=== PATIENT | female | born 1990 | race Caucasian/White ===

== ENCOUNTER 2017-12-20 23:41 | Emergency (ER) | payer OTHER ==
[2017-12-21 00:20] LABS: Urine Blood NEGATIVE (NEG); Urine Glucose NEGATIVE (NEG); Urine Protein NEGATIVE (NEG); Urine Specific Gravity 1.015 (1.005-1.030); Urine pH 7.5 (5.0-7.0)
--- NOTE | 2017-12-21 00:34 | ER ---
Nurse's Notes [facility] Name: Matt Restrepo Age: 27 yrs Sex: Female : 1990 Arrival Date: 12/20/2017 Time: 23:41 Bed 14 Private MD: Diagnosis: discomfort of Presentation: 12/20 23:55 Presenting complaint: Patient states: she started feeling an intermittent abdominal bb pain in the front of her stomach pt is 16 weeks denies vaginal bleeding. Transition of care: patient was not received from another setting of care. Onset of symptoms was December 20, 2017. Risk Assessment: Do you want to hurt yourself or someone else? Patient reports no desire to harm self or others. Initial Sepsis Screen: Does the patient meet any 2 criteria? No. Patient's initial sepsis screen is negative. Does the patient have a suspected source of infection? No. Patient's initial sepsis screen is negative. Care prior to arrival: None. 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 - Social history:: Smoking status: Patient uses tobacco products, several cigarettes daily. - Ebola Screening: : No symptoms or risks identified at this time. Screenin/01 00:36 Abuse screen: Denies threats or abuse. Denies injuries from another. Nutritional ao screening: No deficits noted. Tuberculosis screening: No symptoms or risk factors identified. Fall Risk None identified. Assessment: 12/20 23:56 General: Appears in no apparent distress. comfortable, Behavior is calm, cooperative, ao appropriate for age. Pain: Complains of pain in abdomen. Neuro: Level of Consciousness is awake, alert, obeys commands, Oriented to person, place, time, situation, Appropriate for age Moves all extremities. Full function Speech is normal, Facial symmetry appears normal. Cardiovascular: Capillary refill < 3 seconds Patient's skin is warm and dry. Cardiovascular: Denies chest pain, shortness of breath. Respiratory: Airway is patent Respiratory effort is even, unlabored, Respiratory pattern is regular, symmetrical. GI: Bowel sounds present X 4 quads. Abd is soft and non tender. GI: Reports upper abdominal pain, nausea. : No signs and/or symptoms were reported regarding the genitourinary system. EENT: No signs and/or symptoms were reported regarding the EENT system. Derm: Skin is intact, Skin is pink, warm \T\ dry. normal. Musculoskeletal: Circulation, motion, and sensation intact. Range of motion:. 12/21 00:43 Reassessment: DC instructions given to patient. Patient agree with the POC and to ao follow up with OBG doctor. Instructed patient about [place] contractions during and to take Tylenol or prescribed medications by primary or OBG doctor at home during . Vital Signs: 12/20 23:57 BP 116 / 78; Pulse 83; Resp 16 S; Temp 97.3(A); Pulse Ox 100% on R/A; Weight 92.99 kg bb (R); Height 5 ft. 3 in. (160.02 cm) (R); Pain 0/10; 23:57 Body Mass Index 36.31 (92.99 kg, 160.02 cm) bb 23:57 at worst pain is 7/10 bb ED Course: 23:41 Patient arrived in ED. ds1 23:47 Harjinder Coon MD is Attending Physician. gs 23:56 Triage completed. bb 23:56 Dano Wagner RN is Primary Nurse. ao 23:57 Arm band placed on Patient placed in an exam room, on a stretcher, on pulse oximetry. bb 12/21 00:36 Patient has correct armband on for positive identification. Pulse ox on. NIBP on. ao 00:42 No provider procedures requiring assistance completed. Patient did not have IV access ao during this emergency room visit. Administered Medications: No medications were administered Outcome: 00:34 Discharge ordered by . gs 00:42 Discharged to home ambulatory. ao 00:42 Condition: stable 00:42 Discharge instructions given to patient, Instructed on discharge instructions, Demonstrated understanding of instructions, follow-up care, medications. 00:46 Patient left the ED. ao Signatures: Casie Shaw ds1 Gonzalez, Samantha, RN RN bb Wagner, Dano, RN RN ao Coon, Harjinder, MD MD gs
--- NOTE | 2017-12-21 00:34 | EDPHYS ---
Physician Documentation [facility] Name: Matt Restrepo Age: 27 yrs Sex: Female : 1990 Arrival Date: 12/20/2017 Time: 23:41 Bed 14 Private MD: ED Physician Harjinder Coon HPI: 12/21 00:28 This 27 yrs old Female presents to ER via Ambulatory with complaints of gs Abdominal Pain - 16 Wks Preg. 00:28 The patient presents with abdominal pain in the left lower quadrant. Onset: The gs symptoms/episode began/occurred this morning. The symptoms do not radiate. Associated signs and symptoms: Pertinent negatives: nausea, vomiting, and diarrhea. The symptoms are described as crampy, intermittent. Modifying factors: The symptoms are alleviated by nothing, the symptoms are aggravated by nothing. Severity of pain: At its worst the pain was moderate in the emergency department the pain has resolved. The patient has experienced similar episodes in the past, a few times. 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 - Social history:: Smoking status: Patient uses tobacco products, several cigarettes daily. - Ebola Screening: : No symptoms or risks identified at this time. ROS: 12/21 00:28 All other systems are negative. gs 00:34 : Negative for vaginal bleeding. gs Exam: 00:28 Head/Face: Normocephalic, atraumatic. Eyes: Pupils equal round and reactive to light, gs extra-ocular motions intact. Lids and lashes normal. Conjunctiva and sclera are non-icteric and not injected. Cornea within normal limits. Periorbital areas with no swelling, redness, or edema. ENT: Nares patent. No nasal discharge, no septal abnormalities noted. Tympanic membranes are normal and external auditory canals are clear. Oropharynx with no redness, swelling, or masses, exudates, or evidence of obstruction, uvula midline. Mucous membranes moist. Neck: Trachea midline, no thyromegaly or masses palpated, and no cervical lymphadenopathy. Supple, full range of motion without nuchal rigidity, or vertebral point tenderness. No Meningismus. Chest/axilla: Normal chest wall appearance and motion. Nontender with no deformity. No lesions are appreciated. Cardiovascular: Regular rate and rhythm with a normal S1 and S2. No gallops, murmurs, or rubs. Normal PMI, no JVD. No pulse deficits. Respiratory: Lungs have equal breath sounds bilaterally, clear to auscultation and percussion. No rales, rhonchi or wheezes noted. No increased work of breathing, no retractions or nasal flaring. Back: No spinal tenderness. No costovertebral tenderness. Full range of motion. Skin: Warm, dry with normal turgor. Normal color with no rashes, no lesions, and no evidence of cellulitis. MS/ Extremity: Pulses equal, no cyanosis. Neurovascular intact. Full, normal range of motion. Neuro: Awake and alert, GCS 15, oriented to person, place, time, and situation. Cranial nerves II-XII grossly intact. Motor strength 5/5 in all extremities. Sensory grossly intact. Cerebellar exam normal. Normal gait. 00:28 Constitutional: The patient appears alert, awake. 00:28 Abdomen/GI: Palpation: mild abdominal tenderness, in the left lower quadrant. Vital Signs: 12/20 23:57 BP 116 / 78; Pulse 83; Resp 16 S; Temp 97.3(A); Pulse Ox 100% on R/A; Weight 92.99 kg bb (R); Height 5 ft. 3 in. (160.02 cm) (R); Pain 0/10; 23:57 Body Mass Index 36.31 (92.99 kg, 160.02 cm) bb 23:57 at worst pain is 7/10 bb MDM: 23:52 Patient medically screened. 12/21 00:28 Differential diagnosis: non-specific abd pain, urinary tract infection, raymond garcia. Data reviewed: vital signs, nurses notes. 12/20 23:54 Order name: Urine Microscopic Only 12/20 23:55 Order name: Urine Microscopic Only EDOH 12/20 23:54 Order name: Urine Dipstick-Ancillary (obtain specimen); Complete Time: 00:18 12/21 00:13 Order name: Urine Dipstick--Ancillary (enter results) rg2 12/21 00:13 Order name: Urine --Ancillary (enter results) rg2 Administered Medications: No medications were administered Disposition: 12/21/17 00:34 Discharged to Home. Impression: discomfort of . - Condition is Stable. - Discharge Instructions: [place] Contractions, Abdominal Pain During , [id number]. - Medication Reconciliation Form, Thank You Letter, Antibiotic Education, Prescription Opioid Use form. - Follow up: Private Physician; When: 2 - 3 days; Reason: Re-evaluation by your physician. Signatures: Dispatcher [employer] EDSamantha Canada RN RN Dano Villalobos RN RN ao Starr, Gregory, MD MD gs Corrections: (The following items were deleted from the chart) 00:46 00:34 12/21/2017 00:34 Discharged to Home. Impression: discomfort of . ao Condition is Stable. Forms are Medication Reconciliation Form, Thank You Letter, Antibiotic Education, Prescription Opioid Use. Follow up: Private Physician; When: 2 - 3 days; Reason: Re-evaluation by your physician. gs
[2017-12-21 00:46] LABS: Urine Amorphous Sediment 2+ /HPF (NONE SEEN); Urine Bacteria <20 /HPF (<20); Urine Culture Reflex Order NOT NEEDED; Urine RBC NONE SEEN /HPF (NONE SEEN)
== END 2017-12-21 00:46 | disposition home or self-care (01) ==
LOC: ER 23:41
DX: O26.892 Other specified pregnancy related conditions, second trimester (principal); R10.32 Left lower quadrant pain; F17.200 Nicotine dependence, unspecified, uncomplicated; Z3A.16 16 weeks gestation of pregnancy
CPT/HCPCS: 81003; 81015; 81025; 99283

== ENCOUNTER 2018-05-21 17:38 | Inpatient (IN) | payer OTHER ==
[2018-05-21 20:03] LABS: Absolute Lymphocytes (CBC) 0.5 K/uL (0.7-4.9); Absolute Monocytes 1.2 K/uL (0.1-1.3); Absolute Neutrophil 12.8 K/uL (1.8-8.0); Basophils % 0.1 % (0-1.3); Eosinophils % 0.3 % (0-4.4); Lymphocytes % 3.8 % (15.3-44.8); MPV 8.8 fL (7.6-11.3); Monocytes % 8.1 % (3.3-12.3); RBC Red Blood Cell Count 4.57 M/uL (3.86-4.86)
[2018-05-21 20:14] LABS: Urine Appearance CLOUDY; Urine Bilirubin NEGATIVE (NEG); Urine Blood 2+ (NEG); Urine Color YELLOW; Urine Glucose NEGATIVE (NEG); Urine Protein TRACE (NEG); Urine Specific Gravity 1.025 (1.005-1.030); Urine Urobilinogen 0.2 mg/dL (0.2-1.0)
[2018-05-21 20:31] LABS: Urine Bacteria 20-50 /HPF (<20); Urine Culture Reflex Order REFLEXED; Urine RBC 20-50 /HPF (NONE SEEN)
[2018-05-21 20:32] LABS: Urine Mucus 2+ /HPF (NONE SEEN)
[2018-05-21 20:36] LABS: Barbiturates NEGATIVE (NEGATIVE); Benzodiazepines NEGATIVE (NEGATIVE); Cocaine NEGATIVE (NEGATIVE); METHAMPHETAM NEGATIVE (NEGATIVE); Methadone NEGATIVE (NEGATIVE); Opiates NEGATIVE (NEGATIVE); Phencyclidine NEGATIVE (NEGATIVE); THC Cannibis NEGATIVE (NEGATIVE)
[2018-05-21] MEDS ORDERED: ACETAMINOPHEN 500 MG TAB PO PRN (20:40)
[2018-05-21] MEDS ORDERED: Oxycodone HCl/Acetaminophen 1 TAB TAB PO PRN (20:40)
[2018-05-21 20:45] LABS: Blood Morphology Comment NOT SEEN (NOT SEEN); Platelet Estimate ADEQ; Urine White Blood Cell Casts OK
[2018-05-21] MEDS ORDERED: D5LR 1,000 ML IV SCH (21:00)
[2018-05-21] MEDS ORDERED: Ringers Lactate 1,000 ML IV SCH (21:00)
[2018-05-21 21:19] LABS: Potassium 3.9 mmol/L (3.5-5.1)
[2018-05-21] MEDS: OSELTAMIVIR 75 MG CAP PO SCH (21:45)
[2018-05-21] MEDS ORDERED: OSELTAMIVIR 75 MG CAP ONE (21:46)
[2018-05-21] MEDS: guaiFENesin 100 MG/5 ML UCUP PO PRN (23:25)
[2018-05-22 01:51] VITALS: BMI 39.4
[2018-05-22] MEDS ORDERED: LIDOCAINE 1% MPF 30 ML VIAL ONE (07:50)
[2018-05-22] MEDS ORDERED: OXYTOCIN/LR 20 UNIT/1,000 ML BAG IV ONE (07:51)
[2018-05-22] MEDS ORDERED: Oxycodone HCl/Acetaminophen 1 TAB TAB PO PRN ×2 (08:12)
[2018-05-22] MEDS ORDERED: BISACODYL 10 MG RECTAL SUPP RECT PRN (08:12)
[2018-05-22] MEDS ORDERED: DIPHENHYDRAMINE 25 MG TAB/CAP PO PRN (08:12)
[2018-05-22] MEDS ORDERED: ACETAMINOPHEN 500 MG TAB PO PRN (08:12)
[2018-05-22] MEDS ORDERED: DOCUSATE NA/SENNA CONC 1 TAB PO PRN (08:12)
[2018-05-22] MEDS ORDERED: OXYTOCIN/LR 20 UNIT/1,000 ML BAG IV SCH (09:00)
--- NOTE | 2018-05-22 09:20 | PREOPHP ---
Date of Admission: 05/21/2018 A 27-year-old 4, para 3, at 38 weeks 2 days, came in with chief complaint of coughing, fever, chills, muscle aches. Evaluation showed a white count of over 14,000, positive for influenza A. El ectrolytes were normal. Tachycardia on the baby, was remedios every 3 minutes, noted to be 3 cm, which is basically the same as in the office. The patient was dehydrated, so she was admitted for ob servation and hydration, started on Tamiflu and rehydrated. Admission Diagnoses: Advanced at 38 weeks 2 days, upper respiratory infection - influenza A, and dehydration. RADHA/SABRA Voice ID: [id number]
--- NOTE | 2018-05-22 09:35 | DN ---
Surgeon: Jason Islas MD A 27-year-old 4, para 3, 38 weeks and 2 days on admission with dehydration and a flu as well as regular contractions, but no cervical change initially. Overnight, the patient's fever came down, tachycardia got better; however, this morning, the patient complained of contractions and pressure, was checked, noted to be 4 cm, within just a short time was 8 cm. When I checked her, she was comple te, rupture of membranes, light meconium, prepping was performed. DeLee mucus suction trap was used. Second stage of about 10 to 15 minutes. Spontaneous vaginal delivery of a 7-pound plus male infant . Thorough suction of nares and oropharynx prior to delivery. No suspicion of aspiration. at 1 minute 9, but at 5 minutes, baby looked more cyanotic and I would give an of 8 and now has a skin mottling, baby has good muscle tone, was crying, but I have requested Pediatrics come out and l ook at the baby sooner than their normal rounds. Schultze delivery of the placenta, was inspected an d noted to be intact and normal. Estimated blood loss 300 cc or less. No episiotomy. No laceration s. Completely natural childbirth. Final Diagnosis: Intrauterine gestation, 38 weeks 3 days on delivery. Admission Diagnoses: Upper respiratory infection - influenza A, dehydration, spontaneous labor, and vaginal delivery. We have had her hands washed. I have given her a mask. Everybody of course was taking flu precautio ns. Baby to be evaluated by Pediatrics. RADHA/OFEL Voice ID: [id number] Report ID: [id number]
[2018-05-22] MEDS: guaiFENesin 100 MG/5 ML UCUP PO PRN ×2 (12:25→19:30)
[2018-05-22] MEDS: OSELTAMIVIR 75 MG CAP PO SCH (12:25)
[2018-05-22] MEDS ORDERED: Ringers Lactate 1,000 ML IV ONE (14:30)
[2018-05-23] MEDS: OSELTAMIVIR 75 MG CAP PO SCH ×2 (00:30→09:15)
[2018-05-23] MEDS: IBUPROFEN 200 MG TAB PO PRN ×2 (00:59→09:15)
[2018-05-23 08:21] VITALS: BP 123/75; TEMP 97
--- NOTE | 2018-05-23 12:04 | DS ---
A 27-year-old 4, para 3, at 38 weeks 2 days, on admission with flu-like symptoms, dehydration , possible early labor. Was started on Tamiflu. White count of over 14,000 on admission. Temperatu re about 102. During rehydration process, the patient went to an active labor and delivered rapidly of a term male . Apgars 9 and 8. Baby had some skin mottling, but this resolved. The patient also was strep positive and had such a rapid delivery that she was not able to get penicillin. Baby is doing well, and will be observed until tomorrow when the baby will be dismissed. The patient is doing well. She has become afebrile. She is now hydrated and ambulating. Dismissed with tramadol i f she wants it for analgesia, although she can probably get by on Motrin, and dismissed with Tamiflu, so she can complete her 5-day course of treatment. To report back to my office in 6 weeks for follo wup. To report any temperature elevation of 100 degrees or greater, severe pain, heavy bleeding, or any other type of abnormalities. She is Rh positive, immune to Rubella, and she has had her Tdap, snider ggested to her on several occasions, and in fact, had the Tdap and a flu shot earlier in the pregnanc y. Final Diagnoses: 1.Intrauterine gestation, 38 weeks 3 days. 2.Vaginal delivery. 3.Influenza A. Beta strep positive. RADHA/SABRA Voice ID: [id number] Report ID: [id number]
== END 2018-05-23 11:30 | disposition home or self-care (01) | DRG 805 ==
LOC: L&D 17:38 → 2ND-WC 20:40 → L&D 20:41 → 2ND-WC 20:41
PROVIDERS: ADMIT Specialist; ATTEND Specialist
PROC: 10E0XZZ Delivery of Products of Conception, External Approach (ICD-10-PCS; principal; 2018-05-22)
DX: O98.82 Other maternal infectious and parasitic diseases complicating childbirth (principal); O86.89 Other specified puerperal infections; Z37.0 Single live birth; O76 Abnormality in fetal heart rate and rhythm complicating labor and delivery; Z3A.38 38 weeks gestation of pregnancy; J09.X2 Influenza due to identified novel influenza A virus with other respiratory manifestations; E86.0 Dehydration; O75.89 Other specified complications of labor and delivery; O99.824 Streptococcus B carrier state complicating childbirth
CPT/HCPCS: 36415; 80051; 80307; 81001; 85025; 87086; 87088; 87340; 87389; 87804; J2590

== ENCOUNTER 2019-01-26 03:23 | Emergency (ER) | payer OTHER, SELFPAY ==
[2019-01-26] MEDS ORDERED: AMOX/K CLAV 875 MG TAB ONE (04:15)
--- NOTE | 2019-01-26 04:15 | EDPHYS ---
Physician Documentation [facility] Name: Matt Restrepo Age: 28 yrs Sex: Female : 1990 Arrival Date: 01/26/2019 Time: 03:23 Bed 17 Private MD: ED Physician Jesus Jerry HPI: 01/26 04:15 This 28 yrs old Female presents to ER via Ambulatory with complaints of Sore tw4 Throat, Fever. 04:15 The patient presents with sore throat. The patient describes throat pain as scratchy. tw4 Onset: The symptoms/episode began/occurred yesterday. Severity of symptoms: At their worst the symptoms were moderate, in the emergency department the symptoms are unchanged. Modifying factors: The symptoms are alleviated by nothing, the symptoms are aggravated by nothing. The patient has not experienced similar symptoms in the past. 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 - Social history:: Smoking status: Patient uses tobacco products, smokes one-half pack cigarettes per day. - Ebola Screening: : No symptoms or risks identified at this time. ROS: 04:15 Constitutional: Negative for fever, chills, and weight loss, Eyes: Negative for injury, tw4 pain, redness, and discharge. 04:15 Cardiovascular: Negative for chest pain, palpitations, and edema, Respiratory: Negative for shortness of breath, cough, wheezing, and pleuritic chest pain, Abdomen/GI: Negative for abdominal pain, nausea, vomiting, diarrhea, and constipation, Back: Negative for injury and pain, MS/Extremity: Negative for injury and deformity, Skin: Negative for injury, rash, and discoloration. 04:15 ENT: Positive for sore throat. Exam: 04:15 Constitutional: This is a well developed, well nourished patient who is awake, alert, tw4 and in no acute distress. Head/Face: Normocephalic, atraumatic. 04:15 Cardiovascular: Regular rate and rhythm with a normal S1 and S2. No gallops, murmurs, or rubs. Normal PMI, no JVD. No pulse deficits. Respiratory: Lungs have equal breath sounds bilaterally, clear to auscultation and percussion. No rales, rhonchi or wheezes noted. No increased work of breathing, no retractions or nasal flaring. Abdomen/GI: Soft, non-tender, with normal bowel sounds. No distension or tympany. No guarding or rebound. No evidence of tenderness throughout. Back: No spinal tenderness. No costovertebral tenderness. Full range of motion. MS/ Extremity: Pulses equal, no cyanosis. Neurovascular intact. Full, normal range of motion. Neuro: Awake and alert, GCS 15, oriented to person, place, time, and situation. Cranial nerves II-XII grossly intact. Motor strength 5/5 in all extremities. Sensory grossly intact. Cerebellar exam normal. Normal gait. 04:15 ENT: Posterior pharynx: Tonsils: bilaterally enlarged, with erythema, with exudate. Vital Signs: 03:44 BP 132 / 88; Pulse 98; Resp 18; Temp 99.1(O); Pulse Ox 99% on R/A; Weight 94.35 kg (R); lp1 Height 5 ft. 3 in. (160.02 cm); Pain 0/10; 03:44 Body Mass Index 36.85 (94.35 kg, 160.02 cm) lp1 MDM: 03:35 Patient medically screened. tw4 04:15 Differential diagnosis: echovirus infection, laryngitis, lymphoma, pharyngitis, tw4 tonsillitis. Data reviewed: vital signs, nurses notes. Data interpreted: Pulse oximetry: Interpretation: normal. Counseling: I had a detailed discussion with the patient and/or guardian regarding: the historical points, exam findings, and any diagnostic results supporting the discharge/admit diagnosis. Special discussion: I discussed with the patient/guardian in detail that at this point there is no indication for admission to the hospital. It is understood, however, that if the symptoms persist or worsen the patient needs to return immediately for re-evaluation. 01/26 03:35 Order name: Strep tw4 01/26 03:52 Order name: Flu lp1 01/26 04:14 Order name: Throat Culture EDMS Administered Medications: 04:21 Drug: Augmentin 875 mg Route: PO; jb4 04:22 Follow up: Response: Medication administered at discharge. jb4 Disposition: 01/26/19 04:14 Discharged to Home. Impression: Acute tonsillitis. - Condition is Stable. - Discharge Instructions: Tonsillitis. - Prescriptions for Augmentin 875- 125 mg Oral Tablet - take 1 tablet by ORAL route every 12 hours for 10 days; 20 tablet. - Work release form, Medication Reconciliation Form, Thank You Letter, Antibiotic Education, Prescription Opioid Use form. - Follow up: Private Physician; When: Upon discharge from the Emergency Department; Reason: If symptoms return, Recheck today's complaints, Continuance of care. - Problem is new. - Symptoms have improved. Signatures: Dispatcher [employer] EDMS Berenice Bird RN RN lp1 Veto Obregon RN RN jb4 Jesus Jerry MD MD tw4 Corrections: (The following items were deleted from the chart) 04:22 04:14 01/26/2019 04:14 Discharged to Home. Impression: Acute tonsillitis. Condition is jb4 Stable. Forms are Medication Reconciliation Form, Thank You Letter, Antibiotic Education, Prescription Opioid Use. Follow up: Private Physician; When: Upon discharge from the Emergency Department; Reason: If symptoms return, Recheck today's complaints, Continuance of care. Problem is new. Symptoms have improved. tw4
--- NOTE | 2019-01-26 04:15 | ER ---
Nurse's Notes [facility] Name: Matt Restrepo Age: 28 yrs Sex: Female : 1990 Arrival Date: 01/26/2019 Time: 03:23 Bed 17 Private MD: Diagnosis: Acute tonsillitis Presentation: 01/26 03:42 Presenting complaint: Patient states: Complaint of fever, sore throat, pain when lp1 swallowing, general body aches that began yesterday; States daughter was recently diagnosed with strep. Transition of care: patient was not received from another setting of care. Onset of symptoms was January 25, 2019. Risk Assessment: Do you want to hurt yourself or someone else? Patient reports no desire to harm self or others. Initial Sepsis Screen: Does the patient meet any 2 criteria? No. Patient's initial sepsis screen is negative. Does the patient have a suspected source of infection? No. Patient's initial sepsis screen is negative. Care prior to arrival: None. 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 - Social history:: Smoking status: Patient uses tobacco products, smokes one-half pack cigarettes per day. - Ebola Screening: : No symptoms or risks identified at this time. Screenin:46 Abuse screen: Denies threats or abuse. Denies injuries from another. Nutritional lp1 screening: No deficits noted. Tuberculosis screening: No symptoms or risk factors identified. Fall Risk None identified. Assessment: 03:46 General: Appears in no apparent distress. Behavior is calm, cooperative, appropriate lp1 for age. Pain: Complains of pain in throat Pain currently is 10 out of 10 on a pain scale. Neuro: No deficits noted. Cardiovascular: No deficits noted. Respiratory: Airway is patent Respiratory effort is even. GI: No signs and/or symptoms were reported involving the gastrointestinal system. : No signs and/or symptoms were reported regarding the genitourinary system. EENT: Throat has enlarged tonsils. Derm: Skin is pink, warm \T\ dry. Musculoskeletal: No deficits noted. 04:10 Reassessment: Patient appears in no apparent distress at this time. Patient and/or jb4 family updated on plan of care and expected duration. Pain level reassessed. Patient is alert, oriented x 3, equal unlabored respirations, skin warm/dry/pink. Provider at the bedside. 04:20 Reassessment: Patient appears in no apparent distress at this time. Patient and/or jb4 family updated on plan of care and expected duration. Pain level reassessed. Patient is alert, oriented x 3, equal unlabored respirations, skin warm/dry/pink. PT verbalized understanding of d/c and follow up instructions. Vital Signs: 03:44 BP 132 / 88; Pulse 98; Resp 18; Temp 99.1(O); Pulse Ox 99% on R/A; Weight 94.35 kg (R); lp1 Height 5 ft. 3 in. (160.02 cm); Pain 0/10; 03:44 Body Mass Index 36.85 (94.35 kg, 160.02 cm) lp1 ED Course: 03:23 Patient arrived in ED. ds1 03:35 Jesus Jerry MD is Attending Physician. tw4 03:44 Triage completed. lp1 03:45 Arm band placed on. lp1 03:46 Patient has correct armband on for positive identification. lp1 03:46 No provider procedures requiring assistance completed. Patient did not have IV access lp1 during this emergency room visit. 04:07 Veto Obregon RN is Primary Nurse. jb4 Administered Medications: 04:21 Drug: Augmentin 875 mg Route: PO; jb4 04:22 Follow up: Response: Medication administered at discharge. jb4 Outcome: 04:14 Discharge ordered by MD. tw4 04:20 Discharged to home ambulatory. jb4 04:20 Condition: stable 04:20 Discharge instructions given to patient, Instructed on discharge instructions, follow up and referral plans. medication usage, Demonstrated understanding of instructions, follow-up care, medications, Prescriptions given X 1. 04:22 Patient left the ED. jb4 Signatures: Casie Shaw ds1 Berenice Bird RN RN lp1 Veto Obregon RN RN jb4 Jesus Jerry MD MD tw4
[2019-01-26 04:35] VITALS: BP 132/88; TEMP 99.1; O2SAT 99
== END 2019-01-26 04:22 | disposition home or self-care (01) ==
LOC: ER 03:23
DX: J03.90 Acute tonsillitis, unspecified (principal); F17.210 Nicotine dependence, cigarettes, uncomplicated
CPT/HCPCS: 87070; 87081; 87804; 99283

== ENCOUNTER 2022-09-25 21:51 | Emergency (ER) | payer BC, SELFPAY ==
--- OUTSIDE RECORDS SUMMARY | 2022-09-25 22:28 | XMS REPORT | Continuity of Care Document ---
:1990 Author Organization [facility] t Address [address] [place] [address] [place] [id number] Care Team Providers Name Role Phone Mariposa Souza Primary Care Physician [phone] MARIA TERESA BISHOP Attending Clinician Unavailable Maria Teresa Baker Attending Clinician [phone] Doctor Unassigned, [place] Attending Clinician Unavailable MARIPOSA EMERY Attending Clinician Unavailable Mariposa Souza Attending Clinician JUAN JOSE Attending Clinician Unavailable JUAN JOSE Admitting Clinician Unavailable Payers Payer Name Policy Type Policy Number Effective Date Expiration Date S ryder [facility] - [id number] 2020 00:00:00 OUT OF STATE Problems Condition Condition Condition Status Onset Resolution Last Treating Co mments Source Name Details Category Date Date Treatment Clinician Date Nexplanon Nexplanon Disease Active Uni vers insertion insertion 8-19 ity of 00:00: [address] BMI BMI Disease Active Univers 40.0-44.9, 40.0-44.9, 7-28 it y of adult adult 00:00: [address] Well woman Well woman Disease Active U nivers exam exam 3-25 ity of 00:00: [address] Decreased Decreased Disease Active Uni vers sex drive sex drive 3-25 ity of 00:00: [place] [facility] Vaginal Vaginal Disease Active Univers discharge discharge 4-12 ity of 00:00: [place] 00 [facility] BMI BMI Disease Active Univers 39.0-39.9, 39.0-39.9, 4-12 it y of adult adult 00:00: [place] 00 [facility] Nexplanon Nexplanon Disease Active Uni vers removal removal 6-26 ity of 00:00: [place] [facility] Morbid Morbid Disease Active Univers obesity obesity 6-13 ity of 00:00: [place] [facility] Genital Genital Disease Active 2015-04 Univers warts warts 2-30 ity of 00:00: [place] [address] Medical Branch Screening Screening Disease Active Uni vers examinatio examinatio 7-13 it y of n for STD n [place] STD [place] ([place] Medi kerrie transmitte transmitte Br anch d disease) d disease) Cervical Cervical Disease Active 2013-04 Unive rs high risk high risk 0-23 ity of human human 00:00: [place] papillomav papillomav 00 Me dical irus (HPV) irus (HPV) Br anch DNA test DNA test positive positive ASCUS ASCUS Disease Active 2013-04 Overview: Univer s (atypical (atypical 0-20 Formattin i ty of squamous squamous 00:00: g of this Estuardo as cells of cells of 00 note Medica l undetermin undetermin might be Branch ed ed different significan significan from the ce) on Pap ce) on Pap original. smear smear HPV pending. 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 Social History Social Habit Start Date Stop Date Quantity Comments Source History of 2007-04-22 Cigarette Smoker Universi ty of tobacco use 00:00:00 [place] [facility] History [facility] University o f Alcohol Frequency [place] [facility] History [facility] University o f Alcohol Std [place] Medical Drinks Branch History SDOH University o f Alcohol Binge [place] [facility] Exposure to 2021-11-28 2021-12-08 Not sure [facility] SARS-CoV-2 00:00:00 08:48:00 [facility] (event) Branch Alcohol intake 2021-12-08 2021-12-08 Current drinker Unive rsity of 00:00:00 00:00:00 of alcohol [facility] (finding) [place] Tobacco use and 2021-11-15 2021-11-15 User of smokeless Un iversity of exposure 00:00:00 00:00:00 tobacco [facility] Tobacco Comment 2021-11-15 2021-11-15 Vapes daily Universi ty of 00:00:00 00:00:00 [facility] Alcohol Comment 2020-08-01 2020-08-01 rarely Universit y of 00:00:00 00:00:00 [facility] Sex Ass[birth year] At [birth year] Universit y of 00:00:00 00:00:00 [facility] Smoking Status Start Date Stop Date Source Ex-smoker 2021-11-15 00:00:00 2021-11-15 00:00:00 Universi ty of [facility] Medications Ordered Filled Start Stop Current Ordering Indication Dosage Frequency Signature Comments Components Source Medication Medication Date Date Medication? Clinician (SIG) Name Name etonogestre 2021- No [id number] 68mg Univers L 12-08 ity of (NEXPLANON) 15:45: 14:40 [place] implant 68 00 :00 Medical Branch etonogestre 2021- No [id number] 68mg 68 mg, Univers L 12-08 Subdermal, ity of (NEXPLANON) 15:45: 14:40 ONCE NOW, [place] implant 68 00 :00 1 dose, On Med ical mg Fri Branch 12/08/21 at 1045, Routine
Use approved by: SOCIAL WORK PROGRAM COORDINATOR No known No No known Unive rs medications 12-08 medication it y of 09:44: s [address] Immunizations Ordered Filled Immunization Date Status Comments Sourc e Immunization Name Name Td 2004 Completed University of 00:00:00 [facility] Td 2004 Completed University of 00:00:00 [facility] Vital Signs Vital Name Observation Time Observation Value Comments Source Systolic blood 2021-12-08 13:49:00 110 mm[Hg] Univer sity of pressure [facility] Diastolic blood 2021-12-08 13:49:00 68 mm[Hg] Unive rsity of [facility] Heart rate 2021-12-08 13:49:00 73 /min [facility] Body temperature 2021-12-08 13:49:00 36.33 [facility]tha [facility] Respiratory rate 2021-12-08 13:49:00 20 /min [facility] Body height 2021-12-08 13:49:00 160 cm [facility] Body weight 2021-12-08 13:49:00 108.041 kg [facility] BMI 2021-12-08 13:49:00 42.19 kg/m2 [facility] Procedures Procedure Date / Time Performed Performing Clinician Sour e POCT TEST 2021-12-08 13:55:00 [facility] AND 2021-12-08 05:01:00 Doctor Unassigned, No [facility] CONSENT, MEDICAL AND Name Medical Bra [facility] SURGICAL PROCEDURES Encounters Start End Encounter Admission Attending Care Care Encounter Source Date/Time Date/Time Type Type Clinicians Facility Department ID 2021-12-29 2021-12-29 Outpatient R ALONDRA [facility] [id number] Univers 13:15:00 13:15:00 MARIA TERESA farrell [facility] 2021-12-08 2021-12-08 Outpatient R ALONDRA [facility] [id number] Univers 08:30:00 09:28:18 MARIA TERESA farrell [facility] 2021-12-08 2021-12-08 Office Alondra IAGM [id number] Univers 08:30:00 09:28:18 Visit Maria Teresa Menjivar SOCIAL WORK PROGRAM COORDINATOR [id number] ity [facility] [id number] Estuardo as MATERNAL [phone] Med ical & CHILD [address] [place] [address] 2021-12-08 2021-12-08 Orders Doctor MIQUEL [id number] Univers 00:00:00 00:00:00 Only Unassigned, ROGE [id number] ity of [facility] [id number] Estuardo as [id number] [address] 2021-12-01 2021-12-01 [facility] [id number] Univers 08:30:00 08:30:00 MARIA TERESA swanson [facility] 2021-12-01 2021-12-01 Outpatient R RUPERT [facility] [id number] Univers 08:30:00 08:30:00 MARIPOSA swanson [facility] 2021-12-01 2021-12-01 Telephone [facility] [id number] Univers 00:00:00 00:00:00 Maria Teresa Menjivar SOCIAL WORK PROGRAM COORDINATOR [id number] ity of [facility] [id number] Estuardo as MATERNAL [phone] Med ical & CHILD [address] [place] [address] 2021-11-15 2021-11-15 Office [facility] [id number] Univers 15:30:00 15:50:13 Visit Mariposa Sparks SOCIAL WORK PROGRAM COORDINATOR [id number] ity of [facility] [id number] Estuardo as MATERNAL [phone] [facility] ical & CHILD [address] [place] [address] 2021-11-15 2021-11-15 Outpatient Bridger EMERY [facility] [id number] Univers 15:30:00 15:50:13 MARIPOSA swanson [facility] 2021-11-15 2021-11-15 Outpatient Bridger EMERY [facility] [id number] Univers 15:30:00 15:50:13 MARIPOSA brower o [facility] 2021-11-01 2021-11-01 Outpatient FELIZ JONES [facility] [address] 02:20:00 02:20:00 SSA 0713 da [facility] 2021-08-112021-08-11 Outpatient Bridger BISHOP [facility] [id number] Univers 13:45:00 13:45:00 MARIA TERESA blanchekimberly sky [facility] 2021-07-14 2021-07-14 Outpatient Bridger RODGERSJACKELYNMARIA D [facility] [id number] Univers 13:15:00 14:31:48 MARIA TERESA swanson [facility] 2021-07-14 2021-07-14 Office Alondra [facility] [id number] Univers 13:15:00 14:31:48 Visit Maria Teresa Menjivar SOCIAL WORK PROGRAM COORDINATOR [id number] ity of [facility] [id number] Estuardo as MATERNAL [id number] Med ical & CHILD [address] [place] [address] 2021-07-14 2021-07-14 Orders Doctor MIQUEL [id number] Univers 00:00:00 00:00:00 Only Unassigned, ROGE [id number] ity of [place] [facility] [id number] Estuardo as [id number] [address] 2020-10-03 2020-10-03 [facility] [id number] Univers 10:30:00 10:30:00 MARIPOSA swanson [facility] 2020-08-01 2020-08-01 Outpatient Bridger EMERY [facility] [id number] Univers 12:45:00 12:45:00 MARIPOSA swanson [facility] 2020-07-15 2020-07-15 Outpatient Bridger BISHOP [facility] [id number] Univers 14:15:00 14:15:00 MARIA TERESASU brower [facility] Results Test Description Test Time Test Comments Results Result Comments Source POCT TEST 2021-12-08 13:55:00 Test Item Value Reference Range Interpretation Comme nts POCT PREG (test code = 1605) Negative On board controls acceptable with C Line (test code = 3574) Yes POCT PREG LOT # (test code = 3575) POCT PREG TEST DATE (test code = 3576) [facility] [place] [facility]
[2022-09-26 00:28] LABS: Absolute Lymphocytes (CBC) 1.5 K/uL (0.7-4.9); Hematocrit 42.3 % (36.0-45.0); Lymphocytes % 17.3 % (15.3-44.8); MCV 80.1 fL (80-100); MPV 8.3 fL (7.6-11.3); RBC Red Blood Cell Count 5.28 M/uL (3.86-4.86)
[2022-09-26 00:42] LABS: Albumin 3.2 g/dL (3.4-5.0); Bilirubin Total 0.2 mg/dL (0.2-1.0); Potassium 3.6 mEq/L (3.5-5.1); Protein, Total 7.2 g/dL (6.4-8.2)
[2022-09-26 00:52] LABS: Specific Gravity 1.023 (1.005-1.030); Urine Bacteria None Seen /HPF (<20); Urine Bilirubin NEGATIVE (Negative); Urine Blood Negative (Negative); Urine Clarity Clear (Clear); Urine Color Yellow (Yellow); Urine Glucose NEGATIVE (Negative); Urine Mucus Slight /HPF (None Seen); Urine Protein TRACE (Negative); Urine RBC <5 /HPF (None Seen); Urine Urobilinogen Normal (Normal)
[2022-09-26 00:57] LABS: Specific Gravity 1.023 (1.005-1.030)
--- NOTE | 2022-09-26 01:34 | ER ---
Nurse's Notes [facility] Name: Matt Restrepo Age: 31 yrs Sex: Female : 1990 Arrival Date: 09/25/2022 Time: 21:51 Bed 11 Private MD: Diagnosis: Diarrhea, unspecified;Upper abdominal pain, unspecified Presentation: 09/25 22:19 Chief complaint: Patient states: Upper Abdominal Pain sharp intermittent pain x 3 weks. kl 22:19 Method Of Arrival: Ambulatory kl 22:19 Acuity: JOHN 3 kl Historical: - Allergies: 22:22 No Known Allergies; kl - Home Meds: 22:22 None [Active]; kl - PMHx: 22:22 None; kl - PSHx: 22:22 umbilical hernia repair; kl Screenin/07 03:29 [facility] ED Fall Risk Assessment (Adult) History of falling in the last 3 months, kl including since admission No falls in past 3 months (0 pts) Confusion or Disorientation No (0 pts) Intoxicated or Sedated No (0 pts) Impaired Gait No (0 pts) Mobility Assist Device Used No (0 pt) Altered Elimination No (0 pt) Score/Fall Risk Level 0 - 2 = Low Risk Oriented to surroundings, Maintained a safe environment. Abuse screen: Denies threats or abuse. Nutritional screening: No deficits noted. Tuberculosis screening: No symptoms or risk factors identified. Assessment: 00:15 General: Appears in no apparent distress. Behavior is calm, cooperative. Pain: Denies kl pain. Neuro: No deficits noted. Cardiovascular: No deficits noted. GI: Bowel sounds hyperactive in right upper quadrant, left upper quadrant, right lower quadrant and left lower quadrant Abd is soft and non tender X 4 quads. GI: Reports diarrhea, nausea. : No deficits noted. No signs and/or symptoms were reported regarding the genitourinary system. Vital Signs: 09/25 22:19 BP 112 / 79; Pulse 99; Resp 20; Temp 97.8; Pulse Ox 99% ; Weight 105.23 kg; Height 5 kl ft. 3 in. ; Pain 6/10; 09/26 03:29 BP 136 / 72; Pulse 77; Resp 18; Temp 97(TE); Pulse Ox 96% on R/A; kl 09/25 22:19 Body Mass Index 41.10 (105.23 kg, 160.02 cm) 09/25 22:19 Pain Scale: Adult ED Course: 09/25 21:53 Patient arrived in ED. [id number] 22:04 David Humphries PA is PHCP. cp 22:04 Rogelio Walton MD is Attending Physician. cp 22:22 Triage completed. 09/26 00:07 CBC with Diff Sent. bc6 00:07 CMP Sent. bc6 00:07 Lipase Sent. bc6 00:07 Test, Urine Sent. bc6 00:07 Urinalysis w/ reflexes Sent. bc6 00:07 Inserted saline lock: 20 gauge in right antecubital area, using aseptic technique. bc6 01:23 CT Abd/Pelvis - IV Contrast Only In Process Unspecified. EDMS 01:33 Renny Chan MD is Hospitalizing Provider. cp 02:39 Fabio Sanchez MD is Referral Physician. cp 03:29 Patient has correct armband on for positive identification. Administered Medications: 02:38 CANCELLED (Physician Discretion): Loperamide PO 4 mg PO once cp 03:27 Drug: Diphenoxylate-Atropine PO 2 tabs Route: PO; kl 03:30 Follow up: Response: No adverse reaction Medication: 03:29 VIS not applicable for this client. Outcome: 01:33 Decision to Hospitalize by Provider. cp 02:39 Discharge ordered by MD. cp 03:30 Patient left the ED. Signatures: Dispatcher [employer] EDMS Berna Lynn RN RN David Crespo PA PA cp Jeffries, Jennifer [id number] Maty Lamas 6
--- NOTE | 2022-09-26 01:34 | EDPHYS ---
Physician Documentation [facility] Name: Matt Restrepo Age: 31 yrs Sex: Female : 1990 Arrival Date: 09/25/2022 Time: 21:51 Bed 11 Private MD: ED Physician Rogelio Walton HPI: 09/25 22:45 This 31 yrs old Female presents to ER via Ambulatory with complaints of Abdominal Pain. cp 22:45 The patient presents with abdominal pain in the upper abdomen. cp 22:45 Onset: The symptoms/episode began/occurred 3 week(s) ago. Associated signs and cp symptoms: Pertinent positives: diarrhea, Pertinent negatives: blood in stools, chest pain, constipation, fever, vomiting, vomiting blood. The symptoms are described as waxing/waning. Severity of pain: in the emergency department the pain is unchanged despite home interventions. Historical: - Allergies: 22:22 No Known Allergies; kl - Home Meds: 22:22 None [Active]; kl - PMHx: 22:22 None; kl - PSHx: 22:22 umbilical hernia repair; kl ROS: 22:50 Constitutional: Negative for body aches, chills, fever, poor PO intake. cp 22:50 Eyes: Negative for injury, pain, redness, and discharge. cp 22:50 ENT: Negative for drainage from ear(s), ear pain, sore throat, difficulty swallowing, difficulty handling secretions. 22:50 Cardiovascular: Negative for chest pain, edema, palpitations. 22:50 Respiratory: Negative for cough, shortness of breath, wheezing. 22:50 Abdomen/GI: Positive for nausea and vomiting, diarrhea, Negative for vomiting, constipation, hematemesis, black/tarry stool, rectal bleeding. 22:50 Back: Negative for injury or acute deformity, decreased range of motion. 22:50 : Negative for urinary symptoms. 22:50 Neuro: Negative for altered mental status, dizziness, headache, weakness. 22:50 All other systems are negative. Exam: 22:55 Constitutional: The patient appears in no acute distress, alert, awake, cp non-diaphoretic, non-toxic, well developed, well nourished. 22:55 Head/Face: Normocephalic, atraumatic. cp 22:55 Eyes: Periorbital structures: appear normal, Conjunctiva: normal, no exudate, no injection, Sclera: no appreciated abnormality, Lids and lashes: appear normal, bilaterally. 22:55 ENT: External ear(s): are unremarkable, Nose: is normal, Mouth: Lips: moist, Oral mucosa: pink and intact, moist, Posterior pharynx: is normal, airway is patent, no erythema, no exudate. 22:55 Chest/axilla: Inspection: normal. 22:55 Cardiovascular: Rate: normal, Rhythm: regular. 22:55 Respiratory: the patient does not display signs of respiratory distress, Respirations: normal, no use of accessory muscles, no retractions, labored breathing, is not present, Breath sounds: are clear throughout, no decreased breath sounds, no stridor, no wheezing. 22:55 Abdomen/GI: Inspection: obese Bowel sounds: active, all quadrants, Palpation: soft, in all quadrants, mild abdominal tenderness, in the right upper quadrant and left upper quadrant, rebound tenderness, is not appreciated, involuntary guarding, is not appreciated. 22:55 Back: CVA tenderness, is absent. 22:55 Neuro: Orientation: to person, place \T\ time. Mentation: is normal, Cerebellar function: is grossly normal, Motor: moves all fours, strength is normal, Sensation: is normal. Vital Signs: 22:19 BP 112 / 79; Pulse 99; Resp 20; Temp 97.8; Pulse Ox 99% ; Weight 105.23 kg; Height 5 kl ft. 3 in. ; Pain 6/10; 09/26 03:29 BP 136 / 72; Pulse 77; Resp 18; Temp 97(TE); Pulse Ox 96% on R/A; kl 09/25 22:19 Body Mass Index 41.10 (105.23 kg, 160.02 cm) 09/25 22:19 Pain Scale: Adult kl MDM: 09/25 22:32 Patient medically screened. cp 09/26 00:00 Differential diagnosis: appendicitis, cholecystitis, Cholelithiasis, gastritis, cp non-specific abd pain, pancreatitis, Pyelonephritis, Ureterolithiasis, urinary tract infection. 02:38 Data reviewed: vital signs, nurses notes, lab test result(s), radiologic studies, cp doppler. 02:38 Consideration of Admission/Observation Escalation of care including cp admission/observation considered. I considered the following discharge prescriptions or medication management in the emergency department Medications were administered in the Emergency Department. See MAR. 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 Special discussion: Based on the patient's Hx, exam, and Dx evaluation, there is no indication for emergent surgery or inpatient Tx. It is understood by the patient/guardian that if the Sx's persist or worsen they need to return immediately for re-evaluation. 09/25 22:26 Order name: CBC with Diff; Complete Time: :41 cp 09/26 01:41 Interpretation: Normal except: RBC 5.28; MCH 26.2; OLEGARIO% 75.8. cp 09/25 22:26 Order name: CMP; Complete Time: :41 cp 09/26 01:41 Interpretation: Normal except: GLUC 108; ALB 3.2; GLOB 4.0; A/G 0.8. cp 09/25 22:26 Order name: Lipase; Complete Time: :41 cp 09/26 01:41 Interpretation: Reviewed. cp 09/25 22:26 Order name: Test, Urine; Complete Time: :41 cp 09/26 01:41 Interpretation: Reviewed. cp 09/25 22:26 Order name: Urinalysis w/ reflexes; Complete Time: :41 cp 09/26 01:41 Interpretation: Normal except: UPROT TRACE. cp 09/25 22:26 Order name: Ova And Parasites cp 09/25 22:26 Order name: Rotavirus Antigen cp 09/25 22:26 Order name: Stool Culture cp 09/25 22:26 Order name: CDIFF cp 09/26 00:15 Order name: CT Abd/Pelvis - IV Contrast Only cp 09/25 22:26 Order name: IV Saline Lock; Complete Time: 00:07 cp 09/25 22:26 Order name: Labs collected and sent; Complete Time: 00:07 cp 09/26 02:35 Order name: PO challenge; Complete Time: 03:27 cp Administered Medications: 02:38 CANCELLED (Physician Discretion): Loperamide PO 4 mg PO once cp 03:27 Drug: Diphenoxylate-Atropine PO 2 tabs Route: PO; kl 03:30 Follow up: Response: No adverse reaction kl Disposition Summary: 09/26/22 02:39 Discharge Ordered Location: Home(09/26/22 02:39) cp Problem: new(09/26/22 02:39) cp Symptoms: have improved(09/26/22 02:39) cp Condition: Stable(09/26/22 02:39) cp Diagnosis - Diarrhea, unspecified cp - Upper abdominal pain, unspecified cp Followup: cp - With: Fabio Sanchez MD - When: 2 - 3 days - Reason: Recheck today's complaints Discharge Instructions: - Discharge Summary Sheet cp - Abdominal Pain, Adult cp - Food Choices to Help Relieve Diarrhea, Adult cp - Diarrhea, Adult cp Forms: - Medication Reconciliation Form cp - Thank You Letter cp - Antibiotic Education cp - Prescription Opioid Use cp Prescriptions: - Zofran 4 mg Oral Tablet - take 1 tablet by ORAL route every 12 hours As needed; 20 tablet; Refills: 0, cp Product Selection Permitted - Lomotil 2.5-0.025 mg Oral Tablet - take 1 tablet by ORAL route every 6 hours As needed; 20 tablet; Refills: 0, cp Product Selection Permitted Signatures: Dispatcher [employer] Berna Nolan RN RN kl Page, Corey, PA PA cp Corrections: (The following items were deleted from the chart) 01:34 01:33 Inpatient Admission cp cp 01:34 01:33 Chan, A cp cp 01:34 01:33 Telemetry/MedSurg (Inpatient) cp cp 01:34 01:33 Stable cp cp 01:34 01:33 new cp cp 01:34 01:33 have improved cp cp 01:34 01:33 Standard cp cp 01:34 01:33 cp cp 01:34 01:33 Abdominal pain, unspecified cp cp 02:38 02:35 Loperamide PO 4 mg PO once ordered. cp cp
[2022-09-26] MEDS ORDERED: DIPHENOX/ATROP SULF 1 TAB PO ONE (03:28)
[2022-09-26 04:28] VITALS: BP 136/72; TEMP 97; O2SAT 96
[2022-09-26 05:30] LABS: C.diff Antigen/Toxin Ag neg : Tox neg (NEG : NEG)
--- NOTE | 2022-09-26 13:10 | RAD REPORT ---
EXAM DESCRIPTION: CT scan of the abdomen and pelvis CLINICAL HISTORY: Upper abdominal pain. TECHNIQUE: CT scan of the abdomen and pelvis was performed with intravenous contrast. 5 mm axial tanvir ges were obtained along with coronal and sagittal reformatted images. COMPARISON: None. DOSE OPTIMIZATION: This facility uses dose optimization techniques as appropriate to perform exams, i ncluding at least one of the following techniques: 1. Automated exposure control. 2. Adjustment of the mA and/or kV according to patient size (this includes techniques or standardized protocols for targeted exams where dose is matched to the indication/reason for exam, i.e. extremiti es or head). 3. Use of iterative reconstructive technique. FINDINGS: Lung Bases: No active disease. There are very small bilateral pleural effusions. Liver: Normal. Spleen: Normal. Pancreas: Normal. Gallbladder: Normal. Adrenal Glands: Normal. Kidneys: Normal. Retroperitoneal Structures: Normal. Bowel Survey: The stomach is nondistended. There are multiple nondistended small bowel loops within the pelvis which are fluid-filled and demons trate mural and fold thickening. The appendix is unremarkable. There is moderately severe distention of the colon filled with gas and liquefied stool. Findings are suggestive of enteritis with diarrhea. Uterus and Adnexa: There is a right ovarian cyst measuring 2.4 cm. There is a small amount of adjacent free fluid extending posteriorly suggestive of a cyst rupture. Urinary Bladder: Normal. Peritoneal Cavity: Normal. Mesenteric Structures: There is mild diffuse enlargement of the mesenteric lymph nodes with the large st measuring 1.8 x 1.1 cm. Findings may be reactive to the enteritis with diarrhea. A follow-up CT sc an of the abdomen and pelvis in 6 months recommended to assess stability and/or resolution. Abdominal Wall: No hernia. Bony Structures: No suspicious lesions. There is bilateral spondylolysis at L5. IMPRESSION: 1. Findings suggestive of enteritis with diarrhea. 2. Right ovarian cyst with a small amount of adjacent free fluid. Consider cyst rupture. 3. Mildly enlarged mesenteric lymph nodes. These may be reactive to the suspected enteritis with diar vu. A follow-up CT scan the abdomen and pelvis in 6 months, March 2023, recommended to assess fo r stability and/or resolution. Electronically signed by: Kamar Esparza MD 09/26/2022 1:52 AM CDT Due to temporary technical issues with the PACS/Fluency reporting system, reports are being signed by the in house radiologist without review as a courtesy to ensure prompt reporting. The interpreting r adiologist is fully responsible for the content of the report.
== END 2022-09-26 03:30 | disposition home or self-care (01) ==
LOC: ER 21:51
DX: R19.7 Diarrhea, unspecified (principal); R10.10 Upper abdominal pain, unspecified
CPT/HCPCS: 87045; 85025; 81001; 36415; 87177; 81025; 87046; 87209; 87324; 83690; 80053; 87425; 74177; 99284; Q9967

== ENCOUNTER → 2023-05-21 | Emergency (ER) | payer BC ==
[~2023-05-21] MED LIST: CEFTRIAXONE 1000 MG/VIAL ONE; KETOROLAC 30 MG/ML INJ ONE; MORPHINE 4 MG/ML SYR ONE; NA CHLORIDE 0.9% 1,000 ML ONE; ONDANSETRON 4 MG/2 ML VIAL ONE
--- OUTSIDE RECORDS SUMMARY | 2023-05-21 08:36 | XMS REPORT | Continuity of Care Document ---
Author Name Unknown Address [address] [place] [address] [place] [address] thconnect Address [address] [place] [address] [address] [place] [address] Care Team Providers Care Major Assembler Name Role Phone JUAN JOSE Attending Clinician Unavailable JUAN JOSE Admitting Clinician Unavailable Encounters Start Date/Time End Date/Time Encounter Type Admission Type Attending Clinicians Care Facility Care Department Encounter ID Source 2021-11-01 02:20:00 2021-11-01 02:20:00 Outpatient [facility] [id number] [facility] Program
[2023-05-21 09:44] LABS: Specific Gravity 1.018 (1.005-1.030)
[2023-05-21 09:46] LABS: Absolute Lymphocytes (CBC) 2.4 K/uL (0.7-4.9); Hematocrit 42.9 % (36.0-45.0); Lymphocytes % 22.8 % (15.3-44.8); MCV 85.4 fL (80-100); MPV 8.1 fL (7.6-11.3); Platelets 320 thou/uL (152-406); RBC Red Blood Cell Count 5.03 M/uL (3.86-4.86)
[2023-05-21 10:00] LABS: Albumin 3.6 g/dL (3.4-5.0); Bilirubin Total 0.3 mg/dL (0.2-1.0)
--- NOTE | 2023-05-21 10:19 | RAD REPORT ---
EXAM DESCRIPTION: CT - Stone Protocol - 05/21/2023 10:02 am CLINICAL HISTORY: FLANK PAIN COMPARISON: Abdomen Pelvis W Contrast dated 09/26/2022 TECHNIQUE: Thin cut axial CT imaging of the abdomen and pelvis was performed without IV contrast. Mu ltiplanar reformats were generated and reviewed. All CT scans are performed using dose optimization technique as appropriate and may include automated exposure control or mA/KV adjustment according to patient size. FINDINGS: Trace bilateral layering pleural effusions. No other suspicious findings in the lung bases . The liver, spleen, and pancreas show no suspicious findings. Gallbladder and biliary tree are also wi thout suspicious finding. Symmetric renal contour, without suspicious parenchymal findings within limits of noncontrast techniq ue. No evidence of radiopaque calculi or hydroureteronephrosis. No dilated bowel loops or bowel wall thickening. Appendix is normal in appearance. No free air, free fluid or inflammatory stranding. No hernia, mass or bulky lymphadenopathy. The urinary bladder is sub optimally distended limiting evaluation. No suspicious bony findings. Bilateral L5 pars interarticularis defects, stable. IMPRESSION: No acute intra-abdominal process. Trace layering bilateral pleural effusions.
--- NOTE | 2023-05-21 11:18 | EDPHYS ---
Physician Documentation [facility] Name: Matt Robertson Age: 32 yrs Sex: Female : 1990 Arrival Date: 05/21/2023 Time: 08:32 Bed 12 Private MD: David Larsen HPI: 05/21 11:11 This 32 yrs old Female presents to ER via Ambulatory with complaints of Flank franck Pain. 11:11 The patient complains of pain in the mid back area and left mid back. The pain does not franck radiate. Onset: The symptoms/episode began/occurred 1 day(s) ago. Modifying factors: The symptoms are alleviated by nothing. the symptoms are aggravated by nothing. Associated signs and symptoms: The patient has no apparent associated signs or symptoms. The patient has not experienced similar symptoms in the past. 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 - Social history:: Smoking status: Smoking status: unknown. ROS: 11:11 Constitutional: Negative for fever, chills, and weight loss, Eyes: Negative for injury, franck pain, redness, and discharge, ENT: Negative for injury, pain, and discharge, Neck: Negative for injury, pain, and swelling, Cardiovascular: Negative for chest pain, palpitations, and edema, Respiratory: Negative for shortness of breath, cough, wheezing, and pleuritic chest pain, Abdomen/GI: Negative for abdominal pain, nausea, vomiting, diarrhea, and constipation, : Negative for injury, bleeding, discharge, and swelling, MS/Extremity: Negative for injury and deformity, Skin: Negative for injury, rash, and discoloration, Neuro: Negative for headache, weakness, numbness, tingling, and seizure, Psych: Negative for depression, anxiety, suicide ideation, homicidal ideation, and hallucinations, Allergy/Immunology: Negative for hives, rash, and allergies, Endocrine: Negative for neck swelling, polydipsia, polyuria, polyphagia, and marked weight changes, Hematologic/Lymphatic: Negative for swollen nodes, abnormal bleeding, and unusual bruising, 11:11 Back: Positive for pain at rest, Exam: 11:12 Constitutional: This is a well developed, well nourished patient who is awake, alert, franck and in no acute distress. Head/Face: Normocephalic, atraumatic. Eyes: Pupils equal round and reactive to light, extra-ocular motions intact. Lids and lashes normal. Conjunctiva and sclera are non-icteric and not injected. Cornea within normal limits. Periorbital areas with no swelling, redness, or edema. ENT: Nares patent. No nasal discharge, no septal abnormalities noted. Tympanic membranes are normal and external auditory canals are clear. Oropharynx with no redness, swelling, or masses, exudates, or evidence of obstruction, uvula midline. Mucous membranes moist. Neck: Trachea midline, no thyromegaly or masses palpated, and no cervical lymphadenopathy. Supple, full range of motion without nuchal rigidity, or vertebral point tenderness. No Meningismus. Chest/axilla: Normal chest wall appearance and motion. Nontender with no deformity. No lesions are appreciated. Cardiovascular: Regular rate and rhythm with a normal S1 and S2. No gallops, murmurs, or rubs. Normal PMI, no JVD. No pulse deficits. Respiratory: Lungs have equal breath sounds bilaterally, clear to auscultation and percussion. No rales, rhonchi or wheezes noted. No increased work of breathing, no retractions or nasal flaring. Abdomen/GI: Soft, non-tender, with normal bowel sounds. No distension or tympany. No guarding or rebound. No evidence of tenderness throughout. Skin: Warm, dry with normal turgor. Normal color with no rashes, no lesions, and no evidence of cellulitis. MS/ Extremity: Pulses equal, no cyanosis. Neurovascular intact. Full, normal range of motion. Neuro: Awake and alert, GCS 15, oriented to person, place, time, and situation. Cranial nerves II-XII grossly intact. Motor strength 5/5 in all extremities. Sensory grossly intact. Cerebellar exam normal. Normal gait. Psych: Awake, alert, with orientation to person, place and time. Behavior, mood, and affect are within normal limits. 11:12 Back: pain, that is moderate, ROM is normal, normal spinal alignment noted, CVA tenderness, is absent, muscle spasm, is not present, Vital Signs: 09:21 BP 127 / 98; Pulse 68; Resp 20; Temp 97.9; Pulse Ox 100% ; Weight 86.18 kg; Height 5 kb3 ft. 2 in. ; Pain 10/10; 10:21 Pulse 60; Resp 16; Pulse Ox 100% ; Pain 2/10; nj1 12:40 BP 106 / 77; Pulse 57; Resp 16; Pulse Ox 100% ; Pain 0/10; nj1 09:21 Body Mass Index 34.75 (86.18 kg, 157.48 cm) kb3 09:21 Pain Scale: Adult kb3 10:21 Pain Scale: Adult nj1 12:40 Pain Scale: Adult nj1 MDM: 09:09 Patient medically screened. [facility] 11:12 Differential diagnosis: nephrolithiasis, pyelonephritis, UTI, diverticulitis, franck pancreatitis, appendicitis, bowel obstruction, Cholelithiasis, diverticulitis. Data reviewed: vital signs, nurses notes, lab test result(s), radiologic studies, CT scan. Consideration of Admission/Observation Escalation of care including admission/observation considered. I considered the following discharge prescriptions or medication management in the emergency department Medications were administered in the Emergency Department. See MAR. Independent interpretation of the following test(s) in the Emergency Department CT Scan: My interpretation is ct scan. Test considered but Not performed: EKG: no ekg needed. Care significantly affected by the following chronic conditions: Diabetes. Counseling: I had a detailed discussion with the patient and/or guardian regarding the historical points, exam findings, and any diagnostic results supporting the discharge/admit diagnosis, lab results, radiology results, the need for outpatient follow up, for definitive care, a family practitioner. 05/21 09:23 Order name: CBC with Diff; Complete Time: 10:18 [facility] 05/21 09:23 Order name: CMP; Complete Time: 10:18 [facility] 05/21 09:23 Order name: Lipase; Complete Time: 10:18 [facility] 05/21 09:23 Order name: Test, Urine; Complete Time: 10:18 [facility] 05/21 11:10 Order name: Urinalysis w/ reflexes; Complete Time: 12:39 [facility] 05/21 09:23 Order name: CT Stone Protocol; Complete Time: 10:21 [facility] 05/21 09:23 Order name: IV Saline Lock; Complete Time: 09:40 [facility] 05/21 09:23 Order name: Labs collected and sent; Complete Time: :40 franck Administered Medications: 09:45 Drug: NS 0.9% IV 1000 ml IV at 1 bolus Per protocol; 1000 mL bolus Route: IV; Rate: 1 nj1 bolus; Site: right antecubital; 11:30 Follow up: Response: No adverse reaction; IV Status: Completed infusion; IV Intake: nj1 1000ml 09:45 Drug: Ondansetron IVP 4 mg IVP once; over 2 minutes Route: IVP; Site: right antecubital;nj1 11:30 Follow up: Response: No adverse reaction nj1 09:50 Drug: Ketorolac IVP 30 mg IVP once Route: IVP; Site: right antecubital; kb3 10:30 Follow up: Response: No adverse reaction; Pain is decreased nj1 09:52 Drug: morphine IVP or IV 4 mg IVP once over 4 mins Route: IVP; Infused Over: 4 mins; kb3 Site: right antecubital; 10:30 Follow up: Response: No adverse reaction; Pain is decreased nj1 10:15 Drug: Rocephin IV 1 grams IV at per protocol once; Given slow IV push per pharmacy nj1 instructions Route: IV; Rate: per protocol; Site: right antecubital; 12:40 Follow up: Response: No adverse reaction; IV Status: Completed infusion; IV Intake: [id number] Disposition Summary: 05/21/23 11:17 Discharge Ordered Notes: Location: Home franck Condition: Stable franck Diagnosis - Abdominal tenderness franck - Pleural effusion, not elsewhere classified franck - UTI/ Urinary tract infection, site not specified franck Followup: franck - With: Private Physician - When: 2 - 3 days - Reason: Recheck today's complaints, Continuance of care, Re-evaluation by your physician Discharge Instructions: - Discharge Summary Sheet franck - Abdominal Pain, Adult franck - Pleural Effusion franck - Pleurisy franck - Urinary Tract Infection, Adult franck - Urinary Tract Infection, Adult, Ppib-[id number] franck - Abdominal Pain, Adult, [id number] franck - Pleurisy, Pvhl-qm-[id number] franck Forms: - Medication Reconciliation Form franck - Thank You Letter franck - Antibiotic Education franck - Prescription Opioid Use franck - Patient Portal Instructions franck - Leadership Thank You Letter franck - Work release form nj1 Prescriptions: - Diclofenac Sodium 75 mg Oral tablet, delayed release (enteric coated) - take 1 tablet ORAL route 2 times per day; 2 tablet; Refills: 0, Product franck Selection Permitted - levofloxacin 250 mg Oral tablet - take 1 tablet ORAL route once daily; 7 tablet; Refills: 0, Product Selection franck Permitted Signatures: Dispatcher [employer] David Vazquez MD MD cha Bradberry, Kelly RN RN kb3 Karoline Au RN RN nj1
--- NOTE | 2023-05-21 11:18 | ER ---
Nurse's Notes [facility] Name: Matt Robertson Age: 32 yrs Sex: Female : 1990 Arrival Date: 05/21/2023 Time: 08:32 Bed 12 Private MD: Diagnosis: Abdominal tenderness;Pleural effusion, not elsewhere classified;UTI/ Urinary tract infection, site not specified Presentation: 05/21 09:21 Chief complaint: Patient states: Pt states sudden onset of left flank pain 2 hrs ago kb3 that had spread across her abdomen with associated nausea. Coronavirus screen: Vaccine status: Patient reports being unvaccinated. Client denies travel out of the [place] in the last 14 days. Ebola Screen: Patient negative for fever greater than or equal to 101.5 degrees Fahrenheit, and additional compatible Ebola Virus Disease symptoms Patient denies exposure to infectious person. Patient denies travel to an Ebola-affected area in the 21 days before illness onset. Initial Sepsis Screen: Does the patient meet any 2 criteria? No. Patient's initial sepsis screen is negative. Does the patient have a suspected source of infection? No. Patient's initial sepsis screen is negative. Risk Assessment: Do you want to hurt yourself or someone else? Patient reports no desire to harm self or others. Onset of symptoms was May 21, 2023 at 07:30. 09:21 Method Of Arrival: Ambulatory kb3 09:21 Acuity: JOHN 3 kb3 Triage Assessment: 09:21 General: Appears distressed, uncomfortable, Behavior is cooperative, anxious. Pain: kb3 Complains of pain in left low back and abdomen Pain does not radiate. Pain currently is 10 out of 10 on a pain scale. Quality of pain is described as pressure, sharp, Pain began suddenly, Is continuous. GI: Reports lower abdominal pain, upper abdominal pain, nausea. : Reports pain in left flank(s). 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 - Social history:: Smoking status: Smoking status: unknown. Screenin:50 [facility] ED Fall Risk Assessment (Adult) Score/Fall Risk Level 0 - 2 = Low Risk nj1 Oriented to surroundings, Maintained a safe environment, Hourly rounding (assess needs \T\ fall precautionary measures) done. Abuse screen: Denies threats or abuse. Denies injuries from another. Nutritional screening: No deficits noted. Tuberculosis screening: No symptoms or risk factors identified. Assessment: 09:45 Reassessment: See triage assessment. nj1 09:45 Pain: Complains of pain in flank, left Pain currently is 6 out of 10 on a pain scale. nj1 Alleviated by repositioning. 10:21 Reassessment: Patient appears in no apparent distress at this time. Patient and/or nj1 family updated on plan of care and expected duration. Pain level reassessed. Patient is alert, oriented x 3, equal unlabored respirations, skin warm/dry/pink. Patient states feeling better. 11:24 Reassessment: DC on hold until UA resulted per Dr Kulkarni's instructions. nj1 12:05 Reassessment: Patient appears in no apparent distress at this time. Patient and/or nj1 family updated on plan of care and expected duration. Pain level reassessed. Patient is alert, oriented x 3, equal unlabored respirations, skin warm/dry/pink. Patient denies pain at this time. Patient states feeling better. Patient states symptoms have improved. Vital Signs: 09:21 BP 127 / 98; Pulse 68; Resp 20; Temp 97.9; Pulse Ox 100% ; Weight 86.18 kg; Height 5 kb3 ft. 2 in. ; Pain 10/10; 10:21 Pulse 60; Resp 16; Pulse Ox 100% ; Pain 2/10; nj1 12:40 BP 106 / 77; Pulse 57; Resp 16; Pulse Ox 100% ; Pain 0/10; nj1 09:21 Body Mass Index 34.75 (86.18 kg, 157.48 cm) kb3 09:21 Pain Scale: Adult kb3 10:21 Pain Scale: Adult nj1 12:40 Pain Scale: Adult nj1 ED Course: 08:35 Patient arrived in ED. mg5 09:09 David Kulkarni MD is Attending Physician. franck 09:21 Arm band placed on right wrist. kb3 09:23 Triage completed. kb3 09:40 CBC with Diff Sent. em1 09:40 CMP Sent. em1 09:40 Lipase Sent. em1 09:40 Test, Urine Sent. em1 09:40 Initial lab(s) drawn, by pa, sent to lab. Inserted saline lock: 22 gauge in right em1 antecubital area, using aseptic technique. Blood collected. 09:48 Karoline Au, RN is Primary Nurse. nj1 09:50 Patient has correct armband on for positive identification. Bed in low position. Call nj1 light in reach. Provided Education on: call light, fall precautions. 10:03 CT Stone Protocol In Process Unspecified. EDMS 12:40 Notified ED physician of other UA results, no changes on discharged nj1 instructions/prescriptions per Dr Carlton statement. 12:40 No provider procedures requiring assistance completed. nj1 12:40 IV discontinued, intact, bleeding controlled. nj1 Administered Medications: 09:45 Drug: NS 0.9% IV 1000 ml IV at 1 bolus Per protocol; 1000 mL bolus Route: IV; Rate: 1 nj1 bolus; Site: right antecubital; 11:30 Follow up: Response: No adverse reaction; IV Status: Completed infusion; IV Intake: nj1 1000ml 09:45 Drug: Ondansetron IVP 4 mg IVP once; over 2 minutes Route: IVP; Site: right antecubital;nj1 11:30 Follow up: Response: No adverse reaction nj1 09:50 Drug: Ketorolac IVP 30 mg IVP once Route: IVP; Site: right antecubital; kb3 10:30 Follow up: Response: No adverse reaction; Pain is decreased nj1 09:52 Drug: morphine IVP or IV 4 mg IVP once over 4 mins Route: IVP; Infused Over: 4 mins; kb3 Site: right antecubital; 10:30 Follow up: Response: No adverse reaction; Pain is decreased nj1 10:15 Drug: Rocephin IV 1 grams IV at per protocol once; Given slow IV push per pharmacy nj1 instructions Route: IV; Rate: per protocol; Site: right antecubital; 12:40 Follow up: Response: No adverse reaction; IV Status: Completed infusion; IV Intake: [id number] Medication: 12:40 VIS not applicable for this client. nj1 Intake: 11:30 IV: 1000ml; Total: 1000ml. nj1 12:40 IV: 10ml; Total: 1010ml. nj1 Outcome: 11:17 Discharge ordered by . franck 12:40 Discharged to home ambulatory, with family, nj1 12:40 Condition: stable 12:40 Discharge instructions given to patient, Instructed on discharge instructions, follow up and referral plans. medication usage, Demonstrated understanding of instructions, follow-up care, medications, Prescriptions given X 2, 12:45 Patient left the ED. nj1 Signatures: Dispatcher [employer] EDWA David Kulkarni MD MD cha Martinez, Eric em1 Sena Becerril, KATJA RN kb3 Karoline Au, KATJA RN nj1 Sarah Amezcua mg5 Corrections: (The following items were deleted from the chart) 12:53 12:52 Patient left the ED. nj1 nj1
[2023-05-21 12:18] LABS: Specific Gravity 1.018 (1.005-1.030); Urine Bacteria None Seen /HPF (<20); Urine Bilirubin NEGATIVE (Negative); Urine Blood 3+ (Negative); Urine Clarity Extremely Turbid (Clear); Urine Color Light-Yellow (Yellow); Urine Glucose NEGATIVE (Negative); Urine Mucus 2+ /HPF (None Seen); Urine Protein NEGATIVE (Negative); Urine Urobilinogen Normal (Normal); Urine pH 5.5 (5.0-7.0)
[2023-05-21 19:50] VITALS: BP 106/77; TEMP 97.9; O2SAT 100
== END ==
LOC: ER 08:32
DX: N39.0 Urinary tract infection, site not specified (principal); J90 Pleural effusion, not elsewhere classified; E11.9 Type 2 diabetes mellitus without complications
CPT/HCPCS: 85025; 81001; 36415; 81025; 83690; 80053; 76377; 74176; J2405; J7030; J0696

== ENCOUNTER 2023-08-21 12:21 | Observation (INO) | payer BC ==
--- OUTSIDE RECORDS SUMMARY | 2023-08-21 12:24 | XMS REPORT | Continuity of Care Document ---
Author Name Unknown Address [address] [facility] [address] [place] [address] [facility] thconnect Address [address] [facility] [address] [place] [address] Care Team Providers Care Inside Phone Sales Name Role Phone Mariposa Souza Primary Care Physician [phone] RODNEY BISHOP Attending Clinician Unavail able Rodney Baker Attending Clinician + Doctor Unassigned, Sharon Attending Clinician U MARIPOSA Lee Attending Clinician Unavailab Mariposa Rodrigez Attending Clinician JUAN JOSE Attending Clinician Unavailable JUAN JOSE Admitting Clinician Unavailable Payers Payer Name Policy Type Policy Number Effective Date Expirati on Date Source [facility] [id number] 2020 00:00:00 Problems Condition Name Condition Details Condition Category Status Onset Date Resolution Date Last Treatment Date Treating Clinician Comments Source Nexplanon insertion Nexplanon insertion Disease Active - 00:00: 00 [facility] BMI 40.0-44.9, adult BMI 40.0-44.9, adult Disease Active - 00:00: 00 [facility] Well woman exam Well woman exam Disease Active 07-14 00:00: 00 [facility] Decreased sex drive Decreased sex drive Disease Active 07-14 00:00: 00 [facility] Vaginal discharge Vaginal discharge Disease Active 08-01 00:00: 00 [facility] BMI 39.0-39.9, adult BMI 39.0-39.9, adult Disease Active 08-01 00:00: 00 [facility] Nexplanon removal Nexplanon removal Disease Active 10-15 00:00: 00 [facility] Morbid obesity Morbid obesity Disease Active 10-02 00:00: 00 [facility] Genital warts Genital warts Disease Active 2015-04 00:00: 00 [facility] Screening examinatio n for STD (sexually transmitte d disease) Screening examinatio n for STD (sexually transmitte d disease) Disease Active 11-01 00:00: 00 [facility] Cervical high risk human papillomav irus (HPV) DNA test positive Cervical high risk human papillomav irus (HPV) DNA test positive Disease Active 2013-04 0 00:00: 00 [facility] ASCUS (atypical squamous cells of undetermin ed significan ce) on Pap smear ASCUS (atypical squamous cells of undetermin ed significan ce) on Pap smear Disease Active 2013-04 0 00:00: 00 Overview: Formattin g of this note might be different from the original. HPV pending. [facility] Papanicola ou smear of cervix with high grade squamous intraepith elial lesion (HGSIL) Papanicola ou smear of cervix with high grade squamous intraepith elial lesion (HGSIL) Disease Active 2013-04 0 00:00: 00 [facility] Tobacco use disorder Tobacco use disorder Disease Active 11-12 00:00: 00 [facility] Social History Social Habit Start Date Stop Date Quantity Comments Source History of tobacco use 2007-04-22 00:00:00 Cigarette Smoker [facility] SDOH Alcohol Frequency [facility] History SDOH Alcohol Std Drinks [facility] History SDOH Alcohol Binge [facility] Exposure to SARS-CoV-2 (event) 2021-11-28 00:00:00 2021-12-08 08:48:00 Not sure [facility] History of Social function 2021-07-14 00:00:00 2021-07-14 00:00:00 [facility] Cigarettes smoked current (pack per day) - Reported 2020-08-01 00:00:00 2020-08-01 00:00:00 [facility] Cigarette pack-years 2020-08-01 00:00:00 2020-08-01 00:00:00 [facility] Tobacco use and exposure 2020-08-01 00:00:00 2020-08-01 00:00:00 Smokeless tobacco non-user [facility] Alcohol intake 2020-08-01 00:00:00 2020-08-01 00:00:00 Current drinker of alcohol (finding) [facility] Alcohol Comment 2020-08-01 00:00:00 2020-08-01 00:00:00 rarely [facility] Tobacco Comment 2018-10-01 00:00:00 2018-10-01 00:00:00 smokes 2-3 x per day [facility] Sex Assigned At 1990 00:00:00 1990 00:00:00 [facility] Smoking Status Start Date Stop Date Source Ex-smoker 2021-11-15 00:00:00 2021-11-15 [facility] daily 2020-08-01 00:00:00 [facility] Medications Ordered Medication Name Filled Medication Name Start Date Stop Date Current Medication? Ordering Clinician Indication Dosage Frequency Signature (SIG) Comments Components Source etonogestre L (NEXPLANON) implant 68 mg 12-08 15:45: 00 12-08 14:40 :00 No [id number] 68mg [facility] No known medications 12-08 09:44: 43 No No known medication s [facility] [id number]- iron-folic- docusate (CITRANATAL , DUAL-IRON,) 27 mg iron-1 mg -50 mg Tab 10-31 00:00: 00 11-15 00:00 :00 No [id number] 1{tbl} Take 1 tablet by mouth daily. [facility] proMETHazin e 25 mg tablet 10-31 00:00: 00 11-15 00:00 :00 No [id number] 25mg Take 1 tablet by mouth every 4 (four) hours as needed for Nausea and Vomiting (N/V). [facility] Immunizations Ordered Immunization Name Filled Immunization Name Date Status Comments Source Td 2004 00:00:00 Completed [facility] Td 2004 00:00:00 Completed [facility] TD, NOS Unknown Completed [facility] TD, NOS Unknown Completed [facility] Vital Signs Vital Name Observation Time Observation Value Comments S ource Systolic blood pressure 2021-12-08 13:49:00 110 mm[Hg] [facility] Diastolic blood pressure 2021-12-08 13:49:00 68 mm[Hg] [facility] Heart rate 2021-12-08 13:49:00 73 /min [facility] Body temperature 2021-12-08 13:49:00 36.33 Doretha [facility] Respiratory rate 2021-12-08 13:49:00 20 /min [facility] Body height 2021-12-08 13:49:00 160 cm [facility] Body weight 2021-12-08 13:49:00 108.041 kg [facility] BMI 2021-12-08 13:49:00 42.19 kg/m2 [facility] Procedures Procedure Date / Time Performed Performing Clinicia n Source POCT TEST 2021-12-08 13:55:00 Nael Bishop [facility] DISCLOSURE AND CONSENT, MEDICAL AND SURGICAL PROCEDURES 2021-12-08 05:01:00 Doctor Unassigned, Sharon [facility] Encounters Start Date/Time End Date/Time Encounter Type Admission Type Attending Clinicians Care Facility Care Department Encounter ID Source 2021-12-29 13:15:00 2021-12-29 13:15:00 Outpatient R RODNEY BISHOP [facility] [id number] [facility] 2021-12-08 08:30:00 2021-12-08 09:28:18 Outpatient R RODNEY BISHOP [facility] [id number] [facility] 2021-12-08 08:30:00 2021-12-08 09:28:18 Office Visit Rodney Bishop [facility] [id number] [id number] [facility] 2021-12-08 00:00:00 2021-12-08 00:00:00 Orders Only Doctor Unassigned, Sharon [facility] [id number] [id number] [id number] [id number] [facility] 2021-12-01 08:30:00 2021-12-01 08:30:00 Outpatient R RODNEY BISHOP [facility] [id number] [facility] 2021-12-01 08:30:00 2021-12-01 08:30:00 Outpatient R MARIPOSA ELAM [facility] [id number] [facility] 2021-12-01 00:00:00 2021-12-01 00:00:00 Telephone Rodney Bishop [facility] .840.114 [id number] [id number] [facility] 2021-11-15 15:30:00 2021-11-15 15:50:13 Office Visit Mariposa Elam [facility] 1..840.114 [id number] [id number] [id number] [facility] 2021-11-15 15:30:00 2021-11-15 15:50:13 Outpatient Bridger MARIPOSA ELAM [facility] [id number] [facility] 2021-11-15 15:30:00 2021-11-15 15:50:13 Outpatient Bridger MARIPOSA ELAM [facility] [id number] [facility] 2021-11-01 02:20:00 2021-11-01 02:20:00 Outpatient FELIZ GONZALEZ [facility] [id number] Andrew nino [facility] Program 2021-08-11 13:45:00 2021-08-11 13:45:00 Outpatient RODNEY ALLRED [facility] [id number] [facility] 2021-07-14 13:15:00 2021-07-14 14:31:48 Outpatient RODNEY ALLRED [facility] [id number] [facility] 2021-07-14 13:15:00 2021-07-14 14:31:48 Office Visit Rodney Bishop [facility] [id number] [id number] [id number] [id number] [facility] 2021-07-14 00:00:00 2021-07-14 00:00:00 Orders Only Doctor Unassigned, Sharon [facility] .840.114 [id number] [id number] [id number] [facility] 2020-10-03 10:30:00 2020-10-03 10:30:00 Outpatient MARIPOSA CHI [facility] [id number] [facility] 2020-08-03 00:00:00 2020-08-03 00:00:00 Patient Secure Msg Mariposa Elam [facility] ..840.114 [id number] [id number] [id number] [facility] 2020-08-03 00:00:00 2020-08-03 00:00:00 Patient Secure Mariposa Elam R [facility] [id number] [id number] [id number] [facility] 2020-08-01 12:45:00 2020-08-01 12:45:00 Outpatient MARIPOSA [facility] [id number] [facility] 2020-07-15 14:15:00 2020-07-15 14:15:00 Outpatient RODNEY ALLRED [facility] [id number] [facility] Results Test Description Test Time Test Comments Results Result Co mments Source [facility]
[2023-08-21] MEDS ORDERED: ONDANSETRON 4 MG/2 ML VIAL ONE ×3 (12:33→15:16)
[2023-08-21] MEDS ORDERED: NA CHLORIDE 0.9% 1,000 ML ONE ×2 (12:33→15:16)
[2023-08-21 12:48] LABS: Absolute Lymphocytes (CBC) 2.3 K/uL (0.7-4.9); Absolute Monocytes 1.1 K/uL (0.1-1.3); Absolute Neutrophil 23.5 K/uL (1.8-8.0); Basophils % 0.1 % (0-1.3); Eosinophils % 0.2 % (0-4.4); Hematocrit 49.2 % (36.0-45.0); Hemoglobin 16.4 g/dL (12.0-15.0); Lymphocytes % 8.6 % (15.3-44.8); MCH 28.6 pg (27.0-35.0); MCHC 33.3 g/dL (32.0-36.0); MCV 85.9 fL (80-100); MPV 8.6 fL (7.6-11.3); Monocytes % 3.9 % (3.3-12.3); Neutrophils % 87.2 % (41.7-73.7); Platelets 375 thou/uL (152-406); RBC Red Blood Cell Count 5.73 M/uL (3.86-4.86); Red Cell Distribution Width 13.4 % (12.1-15.2)
[2023-08-21 13:00] LABS: Albumin 3.6 g/dL (3.4-5.0); Albumin/Globulin Ratio 0.8 (1.1-1.8); Anion Gap 11.4 mEq/L (5.0-15.0); Bilirubin Total 0.4 mg/dL (0.2-1.0); Globulin 4.3 g/dL (2.3-3.5); Potassium 3.4 mEq/L (3.5-5.1); Protein, Total 7.9 g/dL (6.4-8.2)
[2023-08-21 13:51] LABS: Blood Morphology Comment NOT SEEN (NOT SEEN); Platelet Estimate ADEQ; White Blood Cell Scan OK (OK)
[2023-08-21] MEDS ORDERED: HYDROMORPHONE HCL 1 MG/ML INJ ONE (14:01)
[2023-08-21 14:19] LABS: Specific Gravity 1.026 (1.005-1.030)
[2023-08-21 14:32] LABS: Specific Gravity 1.026 (1.005-1.030); Urine Bacteria 20-50 /HPF (<20); Urine Bilirubin NEGATIVE (Negative); Urine Blood Negative (Negative); Urine Clarity Extremely Turbid (Clear); Urine Color Yellow (Yellow); Urine Culture Reflex Order NOT NEEDED; Urine Glucose NEGATIVE (Negative); Urine Ketones 2+ (Negative); Urine Microscopic Reflex YN ORDER UMIC; Urine Mucus 3+ /HPF (None Seen); Urine Nitrite NEGATIVE (Negative); Urine Protein TRACE (Negative); Urine Urobilinogen Normal (Normal)
--- NOTE | 2023-08-21 14:59 | RAD REPORT ---
EXAM DESCRIPTION: CTAbdomen Pelvis W Contrast - 08/21/2023 2:49 pm CLINICAL HISTORY: Abdominal pain. ABD PAIN COMPARISON: Abdomen Pelvis W Contrast dated 09/26/2022; Stone Protocol dated 05/21/2023 TECHNIQUE: Biphasic CT imaging of the abdomen and pelvis was performed with 100 ml non-ionic IV cont rast. All CT scans are performed using dose optimization technique as appropriate and may include automated exposure control or mA/KV adjustment according to patient size. FINDINGS: The lung bases are clear.Trace bilateral pleural effusions. The liver, spleen, pancreas, adrenal glands and kidneys are within normal limits. No bowel obstruction, free air, free fluid or abscess. There is a diffuse fluid distended appearance to the small bowel and colon. The appendix is normal. No evidence of significant lymphadenopathy. No suspicious bony findings. IMPRESSION: Diffuse fluid distention of small bowel and the colon is noted. This is a nonspecific fi nding but could indicate ileus or diarrheal condition.
[2023-08-21] MEDS ORDERED: METRONIDAZOLE 500mg IVPB 500 MG/100 ML BAG IV ONE (15:16)
[2023-08-21] MEDS ORDERED: CIPROFLOXACIN 400mg IV 400 MG/200 ML BAG IV ONE (15:16)
--- NOTE | 2023-08-21 15:21 | EDPHYS ---
Physician Documentation [facility] Name: Matt Robertson Age: 32 yrs Sex: Female : 1990 Arrival Date: 08/21/2023 Time: 12:21 Bed 14 Private MD: ED Physician Heather Oneill HPI: 08/20 12:48 This 32 yrs old Female presents to ER via EMS with complaints of Nausea/Vomiting. sp3 12:48 32-year-old female with history of diabetes presents via EMS for chief complaint sp3 vomiting and abdominal cramps that started immediately after eating "string cheese". No prior symptoms to that. Patient denies chest pain, diarrhea, back pain, shortness of breath, fever, URI symptoms, rash, syncope, near syncope, or any other signs or symptoms on ROS at this time.. Historical: - Allergies: 12:24 No Known Allergies; bp - Home Meds: 12:24 Mounjaro subcutaneous [Active]; bp - PMHx: 12:24 diabetes mellitus; bp - PSHx: 12:24 umbilical hernia repair; bp - Immunization history:: Adult Immunizations up to date. - Infectious Disease History:: Denies. - Social history:: Smoking status: Patient denies any tobacco usage or history of. ROS: 12:48 Constitutional: Negative for fever, chills, and weight loss, Eyes: Negative for injury, sp3 pain, redness, and discharge, ENT: Negative for injury, pain, and discharge, Neck: Negative for injury, pain, and swelling, Cardiovascular: Negative for chest pain, palpitations, and edema, Respiratory: Negative for shortness of breath, cough, wheezing, and pleuritic chest pain, Back: Negative for injury and pain, MS/Extremity: Negative for injury and deformity, Skin: Negative for injury, rash, and discoloration, Neuro: Negative for headache, weakness, numbness, tingling, and seizure, Psych: Negative for depression, anxiety, suicide ideation, homicidal ideation, and hallucinations, Allergy/Immunology: Negative for hives, rash, and allergies, Endocrine: Negative for neck swelling, polydipsia, polyuria, polyphagia, and marked weight changes, Hematologic/Lymphatic: Negative for swollen nodes, abnormal bleeding, and unusual bruising, 12:48 All other systems are negative, Exam: 12:48 Constitutional: This is a well developed, well nourished patient who is awake, alert, sp3 and in no acute distress. Head/Face: Normocephalic, atraumatic. Eyes: Pupils equal round and reactive to light, extra-ocular motions intact. Lids and lashes normal. Conjunctiva and sclera are non-icteric and not injected. Cornea within normal limits. Periorbital areas with no swelling, redness, or edema. Neck: Trachea midline, no thyromegaly or masses palpated, and no cervical lymphadenopathy. Supple, full range of motion without nuchal rigidity, or vertebral point tenderness. No Meningismus. Chest/axilla: Normal chest wall appearance and motion. Nontender with no deformity. No lesions are appreciated. Cardiovascular: Regular rate and rhythm with a normal S1 and S2. No gallops, murmurs, or rubs. Normal PMI, no JVD. No pulse deficits. Respiratory: Lungs have equal breath sounds bilaterally, clear to auscultation and percussion. No rales, rhonchi or wheezes noted. No increased work of breathing, no retractions or nasal flaring. Back: No spinal tenderness. No costovertebral tenderness. Full range of motion. Skin: Warm, dry with normal turgor. Normal color with no rashes, no lesions, and no evidence of cellulitis. MS/ Extremity: Pulses equal, no cyanosis. Neurovascular intact. Full, normal range of motion. Neuro: Awake and alert, GCS 15, oriented to person, place, time, and situation. Cranial nerves II-XII grossly intact. Motor strength 5/5 in all extremities. Sensory grossly intact. Cerebellar exam normal. Normal gait. Psych: Awake, alert, with orientation to person, place and time. Behavior, mood, and affect are within normal limits. 12:48 Abdomen/GI: Soft minimally tender epigastrically with no peritoneal signs, rebound or guarding. Nonsurgical abdomen. Patient still nauseated with 1 emesis episode in the ED., Vital Signs: 12:22 BP 111 / 85; Pulse 104; Resp 20; Temp 97.7; Pulse Ox 100% ; bp 13:42 BP 111 / 75; Pulse 81; Resp 16; Pulse Ox 100% ; bp 14:54 BP 103 / 88; Pulse 82; Resp 16; Pulse Ox 97% ; bp 16:06 BP 120 / 87; Pulse 73; Resp 17; Pulse Ox 100% on R/A; bp MDM: 12:26 Patient medically screened. sp3 12:49 Data reviewed: vital signs, nurses notes, lab test result(s). ED course: 32-year-old sp3 female with diabetes with likely foodborne illness with nausea and vomiting. Abdomen is nonsurgical. Differential diagnosis includes food related illness versus viral syndrome. Clinically have ruled out any other critical pathology. Treatment will include normal saline and ondansetron with general labs. Probable discharge once patient feels better and is tolerating oral fluids.. 15:20 ED course: Patient with gastroenteritis. Patient had a bowel movement here in the ED so sp3 I do not believe she has an ileus. Antibiotics started and IV fluids also started continuously. Probable discharge tomorrow. Will place in observation under hospitalist service as patient is still weak.. 08/20 12:27 Order name: CBC with Diff; Complete Time: 15: 3 08/20 12:27 Order name: CMP; Complete Time: 15: sp3 08/20 12:27 Order name: Lipase; Complete Time: 15: sp3 08/20 12:27 Order name: Test, Urine; Complete Time: 15: sp3 08/20 12:27 Order name: Urinalysis w/ reflexes; Complete Time: 15: 3 08/20 13:53 Order name: CBC Smear Scan EDMS 08/20 16:30 Order name: Lactate w/ 2H reflex if indic. EDMS 08/20 16:30 Order name: CBC with Automated Diff EDMS 08/20 16:30 Order name: CBC with Automated Diff EDMS 08/20 16:30 Order name: CBC with Automated Diff EDMS 08/20 16:30 Order name: Comprehensive Metabolic Panel EDMS 08/20 16:30 Order name: Comprehensive Metabolic Panel EDMS 08/20 16:30 Order name: Comprehensive Metabolic Panel EDMS 08/20 16:30 Order name: Magnesium EDMS 08/20 16:30 Order name: Magnesium EDMS 08/20 16:30 Order name: Phosphorus EDMS 08/20 16:30 Order name: Phosphorus EDMS 08/20 13:55 Order name: CT Abd/Pelvis - IV Contrast Only; Complete Time: 15: 3 08/20 12:27 Order name: IV Saline Lock; Complete Time: 12:39 sp3 08/20 12:27 Order name: Labs collected and sent; Complete Time: 12:39 sp3 Administered Medications: 12:44 Drug: NS 0.9% IV 1000 ml IV at 1 bolus Per protocol; 1000 mL bolus Route: IV; Rate: 1 bp bolus; Site: right forearm; 12:45 Drug: Ondansetron IVP 4 mg IVP once; over 2 minutes Route: IVP; Site: right forearm; bp 13:52 Follow up: Response: No adverse reaction bp 14:07 Drug: HYDROmorphone IVP 1 mg IVP once Route: IVP; Site: right antecubital; bp 14:07 Drug: Ondansetron IVP 4 mg IVP once; over 2 minutes Route: IVP; Site: right antecubital;bp 15:26 Drug: Ciprofloxacin IVPB 400 mg 200 ml IVPB once over 60 mins Volume: 200 ml; Route: bp IVPB; Infused Over: 60 mins; Site: right antecubital; 15:26 Drug: Ondansetron IVP 4 mg IVP once; over 2 minutes Route: IVP; Site: right antecubital;bp 15:26 Drug: NS 0.9% IV 1000 ml IV at 125 ml/hr continuous Route: IV; Rate: 125 ml/hr; Site: bp right antecubital; 15:27 Drug: metroNIDAZOLE IVPB 500 mg 100 ml IVPB at 200 ml/hr once over 30 mins Volume: 100 bp ml; Route: IVPB; Rate: 200 ml/hr; Infused Over: 30 mins; Site: right antecubital; Disposition Summary: 08/21/23 15:21 Hospitalization Ordered Notes: Hospitalization Status: Observation sp3 Provider: Chad Coulter sp3 Location: Telemetry/MedSurg (observation) sp3 Condition: Stable sp3 Problem: new sp3 Symptoms: have worsened sp3 Bed/Room Type: Standard sp3 Room Assignment: 204(08/21/23 16:49) bd Diagnosis - Gastroenteritis, dehydration sp3 Forms: - Medication Reconciliation Form sp3 - SBAR form sp3 - Leadership Thank You Letter sp3 Signatures: Dispatcher [employer] EDMS Katiuska Chase Brian, RN RN bp Heather Oneill MD MD sp3 Corrections: (The following items were deleted from the chart) 16:49 15:21 sp3 bd
--- NOTE | 2023-08-21 15:21 | ER ---
Nurse's Notes [facility] Name: Matt Robertson Age: 32 yrs Sex: Female : 1990 Arrival Date: 08/21/2023 Time: 12:21 Bed 14 Private MD: Diagnosis: Gastroenteritis, dehydration Presentation: 08/20 12:22 Chief complaint: EMS states: CALLED TO [facility] FOR [facility]IGUE AND [facility], NOW ACTIVELY bp VOMITING. Coronavirus screen: At this time, the client does not indicate any symptoms associated with coronavirus-19. Ebola Screen: No symptoms or risks identified at this time. Initial Sepsis Screen: Does the patient meet any 2 criteria? HR > 90 bpm. No. Patient's initial sepsis screen is negative. Does the patient have a suspected source of infection? No. Patient's initial sepsis screen is negative. Risk Assessment: Do you want to hurt yourself or someone else? Patient reports no desire to harm self or others. Onset of symptoms was August 21, 2023 at 09:00. Care prior to arrival: Glucose check: 123. 12:22 Method Of Arrival: EMS: [facility] bp 12:22 Acuity: JOHN 3 bp Triage Assessment: 12:24 General: Appears distressed, Behavior is cooperative, appropriate for age, anxious. bp Pain: Denies pain. EENT: No deficits noted. Neuro: Reports FATIGUE. Cardiovascular: Rhythm is sinus tachycardia. Respiratory: No deficits noted. GI: Reports nausea, vomiting. : No signs and/or symptoms were reported regarding the genitourinary system. Derm: No deficits noted. Musculoskeletal: No signs and/or symptoms reported regarding the musculoskeletal system. Historical: - Allergies: 12:24 No Known Allergies; bp - Home Meds: 12:24 Mounjaro subcutaneous [Active]; bp - PMHx: 12:24 diabetes mellitus; bp - PSHx: 12:24 umbilical hernia repair; bp - Immunization history:: Adult Immunizations up to date. - Infectious Disease History:: Denies. - Social history:: Smoking status: Patient denies any tobacco usage or history of. Screenin:25 [facility] ED Fall Risk Assessment (Adult) History of falling in the last 3 months, bp including since admission No falls in past 3 months (0 pts). Abuse screen: Denies threats or abuse. Denies injuries from another. Nutritional screening: No deficits noted. Tuberculosis screening: No symptoms or risk factors identified. Assessment: 12:25 General: SEE TRIAGE NOTE. GI: Abdomen is non-distended, Pt is actively vomiting bile. bp 13:42 Reassessment: Patient appears in no apparent distress at this time. Patient is alert, bp oriented x 3, equal unlabored respirations, skin warm/dry/pink. 14:55 Reassessment: Patient is alert, oriented x 3, equal unlabored respirations, skin bp warm/dry/pink. Patient states symptoms have improved. 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 bp 16:06 Reassessment: Patient appears in no apparent distress at this time. Patient and/or bp family updated on plan of care and expected duration. Pain level reassessed. Patient is alert, oriented x 3, equal unlabored respirations, skin warm/dry/pink. Vital Signs: 12:22 BP 111 / 85; Pulse 104; Resp 20; Temp 97.7; Pulse Ox 100% ; bp 13:42 BP 111 / 75; Pulse 81; Resp 16; Pulse Ox 100% ; bp 14:54 BP 103 / 88; Pulse 82; Resp 16; Pulse Ox 97% ; bp 16:06 BP 120 / 87; Pulse 73; Resp 17; Pulse Ox 100% on R/A; bp ED Course: 12:22 Patient arrived in ED. bp 12:22 Heather Oneill MD is Attending Physician. sp3 12:23 Triage completed. bp 12:25 Arm band placed on. bp 12:25 Patient has correct armband on for positive identification. bp 12:26 Dejon Jiang, KATJA is Primary Nurse. bp 12:39 CBC with Diff Sent. bc6 12:39 CMP Sent. bc6 12:39 Lipase Sent. bc6 12:39 Initial lab(s) drawn, by me, sent to lab. Inserted saline lock: 22 gauge in right bc6 antecubital area, using aseptic technique. Blood collected. 14:07 Test, Urine Sent. bp 14:07 Urinalysis w/ reflexes Sent. bp 14:51 CT Abd/Pelvis - IV Contrast Only In Process Unspecified. EDMS 14:55 Glycerin swabs given to help ease pt's dry mouth. em1 15:20 Chad Coulter is Hospitalizing Provider. sp3 15:27 CBC Smear Scan Sent. bp 17:34 No provider procedures requiring assistance completed. Patient admitted, IV remains in nj1 place. Administered Medications: 12:44 Drug: NS 0.9% IV 1000 ml IV at 1 bolus Per protocol; 1000 mL bolus Route: IV; Rate: 1 bp bolus; Site: right forearm; 12:45 Drug: Ondansetron IVP 4 mg IVP once; over 2 minutes Route: IVP; Site: right forearm; bp 13:52 Follow up: Response: No adverse reaction bp 14:07 Drug: HYDROmorphone IVP 1 mg IVP once Route: IVP; Site: right antecubital; bp 14:07 Drug: Ondansetron IVP 4 mg IVP once; over 2 minutes Route: IVP; Site: right antecubital;bp 15:26 Drug: Ciprofloxacin IVPB 400 mg 200 ml IVPB once over 60 mins Volume: 200 ml; Route: bp IVPB; Infused Over: 60 mins; Site: right antecubital; 15:26 Drug: Ondansetron IVP 4 mg IVP once; over 2 minutes Route: IVP; Site: right antecubital;bp 15:26 Drug: NS 0.9% IV 1000 ml IV at 125 ml/hr continuous Route: IV; Rate: 125 ml/hr; Site: bp right antecubital; 15:27 Drug: metroNIDAZOLE IVPB 500 mg 100 ml IVPB at 200 ml/hr once over 30 mins Volume: 100 bp ml; Route: IVPB; Rate: 200 ml/hr; Infused Over: 30 mins; Site: right antecubital; Medication: 12:25 VIS not applicable for this client. bp Outcome: 15:21 Decision to Hospitalize by Provider. sp3 17:34 Patient left the ED. nj1 17:34 Admitted to Med/surg accompanied by tech, via wheelchair, room 204, nj1 17:34 Condition: stable 17:34 Instructed on the need for admit, Signatures: Dispatcher [employer] EDMS Macario Duke em1 Dejon Jiang, RN RN bp Heather Oneill MD MD sp3 Maty Lamas 6 Karoline Au RN RN nj1
[2023-08-21] MEDS: INSULIN REGULAR (HUMAN) 100 UNIT/ML SQ SCH (16:30)
--- NOTE | 2023-08-21 16:37 | P.HP ---
Certification for Inpatient Patient admitted to: Observation With expected LOS: <2 Midnights Practitioner: I am a practitioner with admitting privileges, knowledge of patient current condition, hospital course, and medical plan of care. Services: Services provided to patient in accordance with Admission requirements found in Title 42 Section 412.3 of the Code of Federal Regulations Patient History Date of Service: 08/21/23 Reason for admission: Nausea and vomiting History of Present Illness: 32-year-old female with a PMHx of diabetes melitis type II on [facility] who presents to the ED with complaints of nausea and vomiting since 10 AM. She reports vomiting immediately after eating string cheese and 1 episode of emesis in the ED. nausea relieved with Zofran. She also reports diarrhea x [address] abdomen pelvis showing "diffuse fluid distention of small bowel and the colon is noted. This is a nonspecific finding but could indicate ileus or diarrheal condition." WBC 26.9. Afebrile. ED provider wishes to admit for gastroenteritis, dehydration. Allergies No Known Allergies Allergy (Unverified 03/19/18 11:55) Home medications list reviewed: Yes Home Medications: Oseltamivir Phosphate [Tamiflu] 75 mg PO BID* #8 capsule 05/23/18 Tramadol HCl [Ultram] 50 mg PO Q6HR #15 tablet 05/23/18 - Past Medical/Surgical History Has patient received pneumonia vaccine in the past: No Diabetic: Yes -: Diabetes melitis type II [id number] -: Umbilical hernia repair 2009 - Social History Smoking Status: Current every day smoker (Vape) Alcohol use: No CD- Drugs: No Caffeine use: Yes Review of Systems 10-point ROS is otherwise unremarkable Gastrointestinal: Nausea, Diarrhea Physical Examination - Physical Exam General: Alert, In no apparent distress, Oriented x3 HEENT: Atraumatic, Normocephalic Respiratory: Clear to auscultation bilaterally, Normal air movement Cardiovascular: No edema, Normal pulses, Regular rate/rhythm Gastrointestinal: Normal bowel sounds, Soft and benign, No tenderness Musculoskeletal: No clubbing, No swelling Integumentary: No rashes, No breakdown Neurological: Normal gait, Normal speech - Studies Laboratory Data (last 24 hrs) 08/21/23 08/21/23 12:30 12:30 WBC 26.90 H Hgb 16.4 H Hct 49.2 H Plt Count 375 Sodium 137 Potassium 3.4 L BUN 10 Creatinine 0.90 Glucose 149 H Total Bilirubin 0.4 AST 10 L ALT 16 Alkaline Phosphatase 88 Lipase 52 Assessment and Plan - Plan Problem list Gastroenteritis Dehydration Diabetes mellitus type II Gastroenteritis Dehydration - CT abdomen pelvis 08/20: "diffuse fluid distention of small bowel and the colon is noted. This is a nonspecific finding but could indicate ileus or diarrheal condition." -Foodborne versus viral illness - Given 1 L fluid bolus in ED. will continue with IV hydration -Place patient on bowel rest for now. May continue bland diet in a.m. -Zofran as needed for nausea -WBC 26.9. Afebrile. Daily CBC and BMP -Electrolyte replacement per protocol Diabetes mellitus type 2 -Hold home Mounjaro -Accu-Cheks ACHS -Insulin per sliding scale. hold while npo Full code SCDs Dispo: Home ~24h - Advance Directives Does patient have a Living Will: No Does patient have a Durable POA for Healthcare: No
[2023-08-21] MEDS: NA CHLORIDE 0.9% 1,000 ML IV SCH (17:00)
[2023-08-21 17:47] VITALS: O2SAT 100
[2023-08-21 18:14] VITALS: BMI 33.3
[2023-08-21] MEDS: ONDANSETRON 4 MG/2 ML VIAL IV PRN (18:43)
[2023-08-21] MEDS ORDERED: ACETAMINOPHEN 325 MG TABLET PO PRN (19:44)
[2023-08-21] MEDS: HYDROCODONE/APAP 7.5/325 MG TAB PO PRN (20:30)
[2023-08-21] MEDS: CIPROFLOXACIN 400mg IV 400 MG/200 ML BAG IV SCH (20:31)
[2023-08-22] MEDS: METRONIDAZOLE 500mg IVPB 500 MG/100 ML BAG IV SCH (02:17)
[2023-08-22 04:37] LABS: Absolute Basophils 0.1 K/uL (0-0.5); Absolute Eosinophils 0.1 K/uL (0-0.5); Absolute Lymphocytes (CBC) 3.3 K/uL (0.7-4.9); Absolute Monocytes 0.7 K/uL (0.1-1.3); Basophils % 0.6 % (0-1.3); Hematocrit 35.1 % (36.0-45.0); Hemoglobin 11.7 g/dL (12.0-15.0); Lymphocytes % 26.9 % (15.3-44.8); MCH 28.3 pg (27.0-35.0); MCHC 33.2 g/dL (32.0-36.0); MCV 85.2 fL (80-100); MPV 8.6 fL (7.6-11.3); Monocytes % 5.8 % (3.3-12.3); Neutrophils % 65.7 % (41.7-73.7); Platelets 268 thou/uL (152-406); RBC Red Blood Cell Count 4.12 M/uL (3.86-4.86); Red Cell Distribution Width 13.7 % (12.1-15.2)
[2023-08-22 04:46] LABS: Albumin 2.5 g/dL (3.4-5.0); Albumin/Globulin Ratio 0.9 (1.1-1.8); Anion Gap 8.3 mEq/L (5.0-15.0); Bilirubin Total 0.4 mg/dL (0.2-1.0); Globulin 2.9 g/dL (2.3-3.5); Magnesium 1.9 mg/dL (1.6-2.4); Potassium 3.3 mEq/L (3.5-5.1); Protein, Total 5.4 g/dL (6.4-8.2)
[2023-08-22] MEDS: POTASSIUM 25 MEQ EFFERV TAB PO ONE (06:38)
[2023-08-22] MEDS: POTASS/SODIUM PHOSPHATE 1 PKT POWD.PACK PO SCH (06:38)
[2023-08-22] MEDS ORDERED: NA CHLORIDE 0.9% 1,000 ML IV ONE (09:01)
[2023-08-22 12:30] VITALS: BP 107/70; TEMP 98
--- NOTE | 2023-08-22 12:49 | P.DS ---
Admission Date: 08/21/23 Discharge Date: 08/22/23 Disposition: ROUTINE DISCHARGE Discharge Condition: GOOD Reason for Admission: Nausea and vomiting Brief History of Present Illness: 32-year-old female with a PMHx of diabetes melitis type II on [employer] who presents to the ED with complaints of generalized weakness, nausea and vomiting since 10 AM. She reports vomiting immediately after eating string cheese at home and continued nausea. CT abdomen pelvis showing "diffuse fluid distention of small bowel and the colon is noted. This is a nonspecific finding but could indicate ileus or diarrheal condition." WBC 26.9. Afebrile. ED provider wishes to admit under observation for gastroenteritis, dehydration. Hospital Course: Problem list Gastroenteritis Dehydration Diabetes Mellitus type II on [employer] Presented with nausea/vomiting and generalized weakness. CT abdomen pelvis reporting "Diffuse fluid distention of small bowel and the colon is noted. This is a nonspecific finding but could indicate ileus or diarrheal condition." Treated for gastroenteritis with ciprofloxacin and flagyl IV. Given IV hydration for dehydration. Electrolytes replaced. Relief of nausea with zofran. Tolerating diet, no additional vomiting or diarrhea since 08/20. Deemed stable for discharge. Rest and drink plenty of fluids to stay hydrated. Prescriptions -Zofran 4 mg p.o. sublingual every 6 hours as needed for nausea/vomiting -Ciprofloxacin 500 mg p.o. twice daily x 3 days Continue home medications as previously prescribed. Follow-ups -Follow-up with your primary care physician within 1 week. Please call office to schedule appointment. Physical Exam General: Alert, In no apparent distress, Oriented x3 HEENT: Atraumatic, Normocephalic Respiratory: Clear to auscultation bilaterally, Normal air movement Cardiovascular: No edema, Normal pulses, Regular rate/rhythm Gastrointestinal: Normal bowel sounds, Soft and benign, No tenderness Musculoskeletal: No clubbing, No swelling Integumentary: No rashes, No breakdown Neurological: Normal gait, Normal speech Vital Signs/Physical Exam: Temp Pulse Resp BP Pulse Ox 98 F 80 16 107/70 99 08/22/23 12:00 08/22/23 12:00 08/22/23 12:00 08/22/23 12:00 08/22/23 12:00 Laboratory Data at Discharge: WBC 12.20 thou/uL (4.3-10.9) H 08/22/23 04:01 Hgb 11.7 g/dL (12.0-15.0) L D 08/22/23 04:01 Hct 35.1 % (36.0-45.0) L 08/22/23 04:01 Plt Count 268 thou/uL (152-406) D 08/22/23 04:01 Sodium 140 mEq/L (136-145) 08/22/23 04:01 Potassium 3.3 mEq/L (3.5-5.1) L 08/22/23 04:01 BUN 6 mg/dL (7-18) L 08/22/23 04:01 Creatinine 0.67 mg/dL (0.55-1.02) 08/22/23 04:01 Glucose 113 mg/dL (74-106) H 08/22/23 04:01 Phosphorus 2.0 mg/dL (2.5-4.9) L 08/22/23 04:01 Magnesium 1.9 mg/dL (1.6-2.4) 08/22/23 04:01 Total Bilirubin 0.4 mg/dL (0.2-1.0) 08/22/23 04:01 AST 5 U/L (15-37) L 08/22/23 04:01 ALT 12 U/L (13-56) L 08/22/23 04:01 Alkaline Phosphatase 51 U/L (45-117) D 08/22/23 04:01 Lipase 52 U/L (13-75) 08/21/23 12:30 Home Medications: Ciprofloxacin HCl [Cipro 500 MG Tablet] 500 mg PO BID 2 Days #4 tab 08/22/23 Ondansetron [Zofran] 4 mg PO Q6H PRN #10 tab 08/22/23 Tirzepatide [Mounjaro] 10 mg SQ ONCE 08/22/23 New Medications: Ciprofloxacin HCl [Cipro 500 MG Tablet] 500 mg PO BID 2 Days #4 tab Ondansetron [Zofran] 4 mg PO Q6H PRN #10 tab PRN Reason: Nausea / Vomiting Physician Discharge Instructions: Presented with nausea/vomiting and generalized weakness. CT abdomen pelvis reporting "Diffuse fluid distention of small bowel and the colon is noted. This is a nonspecific finding but could indicate ileus or diarrheal condition." Treated for gastroenteritis with ciprofloxacin and flagyl IV. Given IV hydration for dehydration. Electrolytes replaced. Relief of nausea with zofran. Tolerating diet, no additional vomiting or diarrhea since 08/20. Deemed stable for discharge. Rest and drink plenty of fluids to stay hydrated. Prescriptions -Zofran 4 mg p.o. sublingual every 6 hours as needed for nausea/vomiting -Ciprofloxacin 500 mg p.o. twice daily x 3 days Continue home medications as previously prescribed. Follow-ups -Follow-up with your primary care physician within 1 week. Please call office to schedule appointment. Diet: Regular Activity: Ad angela Followup: Maday Barrios NP [OUTSIDE PHYSICIAN] -
== END 2023-08-22 13:17 | disposition home or self-care (01) ==
LOC: ER 12:21 → 2ND 16:19
PROVIDERS: ADMIT Internal Medicine; ATTEND Internal Medicine
DX: K52.9 Noninfective gastroenteritis and colitis, unspecified (principal); E86.0 Dehydration; E11.9 Type 2 diabetes mellitus without complications
CPT/HCPCS: 85025 ×2; 81001; 36415 ×2; 83735; 81025; 84100; 82947; 83605; 83690; 80053 ×2; 74177; 99285; Q9967; J1170; J2405 ×6; J0744 ×3; J7030 ×3; G0378 ×3